=== PATIENT | male | born 1950 | race Caucasian/White ===

== ENCOUNTER 2018-03-18 14:50 | Inpatient (IN) | payer OTHER, MEDICAID ==
[~2018-03-18] VITALS: Ht 182.9 cm; Wt 59.0 kg
[2018-03-18 14:50] VITALS: BP_SYST 140
--- NOTE | 2018-03-18 14:50 | NUR ---
BROUGHT IN BY [facility], PLACED IN BED #1, TRIAGED. REPORT GIVEN TO BROOKS
[2018-03-18] MEDS ORDERED: NACL 0.9% 1,000 ML IV ONE ×2 (15:00→16:30)
--- NOTE | 2018-03-18 15:00 | NUR ---
Patient arrived via [facility]. C/C of AL, patient arrived from [facility]. Patient normal mental status is non verbal, able to track with eyes. Per staff at facility, patient has not been tracking movement today, and patient appears more lethargic. Patient has extensive history. Patient withdrawls to pain, patient is contracted, and non verbal. Patient moaning, and using accessory muscles and abdominal muscles with inspiration.
--- NOTE | 2018-03-18 15:01 | NUR ---
WENDY Logan at bedside examining patient.
[2018-03-18 15:19] LABS: BASOPHILS % (AUTO) 0.3 % (0.0-2.0); HEMATOCRIT 48.8 % (36-54); HEMOGLOBIN 15.6 g/dL (14.0-18.0); LYMPHOCYTES # (AUTO) 0.3 K/uL (1.0-5.5); LYMPHOCYTES % (AUTO) 3.4 % (20.5-51.5); MEAN CORPUSCULAR HEMOGLOBIN 29 pg (27-31); MEAN CORPUSCULAR HGB CONC 32 % (32-36); MEAN CORPUSCULAR VOLUME 92 fL (79.0-98.0); MONOCYTES # (AUTO) 0.4 K/uL (0.0-1.0); MONOCYTES % (AUTO) 3.9 % (1.7-9.3); NEUTROPHILS # (AUTO) 9.5 K/uL (1.8-7.7); NEUTROPHILS % (AUTO) 92.4 % (40.0-70.0); PLATELET COUNT (AUTO) 362 K/uL (130-430); RED BLOOD CELL COUNT(AUTO) 5.32 MIL/uL (4.2-6.2); RED CELL DISTRIBUTION WIDTH 13.5 % (9.0-15.0); WHITE BLOOD COUNT (AUTO) 10.2 K/uL (4.8-10.8)
[2018-03-18 15:30] LABS: PROTHROMBIN TIME 9.9 SECS (9.5-12.5)
[2018-03-18 15:45] LABS: CALCIUM 9.8 mg/dL (8.4-11.0); CREATININE 1.08 mg/dL (0.55-1.30); POTASSIUM 3.9 mmol/L (3.5-5.1)
[2018-03-18 15:53] LABS: TOTAL BILIRUBIN 0.6 mg/dL (0.0-1.0)
[2018-03-18] MEDS ORDERED: IPRATROPIUM/ALBUTEROL SULFATE 3 ML AMPUL.NEB (DUONEB) INH ONE (16:00)
[2018-03-18] MEDS ORDERED: MORPHINE 4 MG/ML INJ. SYRINGE IVP ONE (16:00)
--- NOTE | 2018-03-18 16:00 | NUR ---
Patient taken to CT scan, patient in stable condition. Assisted to CT by RN and Tech.
[2018-03-18 16:01] LABS: BILIRUBIN,URINE NEGATIVE (NEGATIVE); CLARITY/URINE HAZY (CLEAR); COLOR,URINE YELLOW (YELLOW); GLUCOSE,URINE NEGATIVE (NEGATIVE); KETONES,URINE TRACE (NEGATIVE); LEUKOCYTE ESTERASE ,URINE 2+ (NEGATIVE); NITRITE, URINE NEGATIVE (NEGATIVE); PH,URINE 8.5 (5.0-8.0); PROTEIN URINE 2+ (NEGATIVE)
[2018-03-18 16:05] LABS: BLOOD, URINE TRACE (NEGATIVE)
[2018-03-18 16:08] LABS: BACTERIA,URINE MANY /HPF (None Seen); RBC,URINE 0-3 /HPF (0-3); WBC,URINE 50-80 /HPF (0-3)
[2018-03-18 16:09] LABS: MUCUS,URINE None Seen /LPF (None Seen)
--- NOTE | 2018-03-18 16:12 | NUR ---
Patient returned from CT scan, tolerated procedure well.
[2018-03-18] MEDS ORDERED: LEVOFLOXACIN 500 MG/D5W 100 ML IV ONE (16:30)
[2018-03-18] MEDS ORDERED: ONDANSETRON HCL 4 MG/2 ML VIAL IVP PRN (17:45)
[2018-03-18] MEDS ORDERED: ACETAMINOPHEN 325 MG TABLET PO PRN (17:45)
[2018-03-18] MEDS ORDERED: MOM PO (18:14)
[2018-03-18] MEDS ORDERED: SENN8.6T19 PO (18:14)
[2018-03-18] MEDS ORDERED: PRAM1TAB4 PO (18:14)
[2018-03-18] MEDS ORDERED: OXYB5TAB11 PO (18:14)
[2018-03-18] MEDS ORDERED: MULT-1089 PO (18:14)
[2018-03-18] MEDS ORDERED: MONT10TA25 PO (18:14)
[2018-03-18] MEDS ORDERED: ALEN70TA3 PO (18:14)
[2018-03-18] MEDS ORDERED: LACO200T2 PO (18:14)
[2018-03-18] MEDS ORDERED: TOPI200T PO (18:14)
[2018-03-18] MEDS ORDERED: DOCU-144 PO (18:14)
[2018-03-18] MEDS ORDERED: POTA10TA15 PO (18:14)
[2018-03-18] MEDS ORDERED: HYDR-4272 PO (18:14)
[2018-03-18] MEDS ORDERED: ASCO500T20 PO (18:14)
[2018-03-18] MEDS ORDERED: OSCD500 PO (18:14)
[2018-03-18] MEDS ORDERED: LACO100T2 PO (18:14)
[2018-03-18] MEDS ORDERED: ACET325T53 PO (18:14)
[2018-03-18] MEDS ORDERED: LEVO100T PO (18:14)
--- NOTE | 2018-03-18 18:14 | NUR ---
Medication reconciliation completed.
--- NOTE | 2018-03-18 18:20 | NUR ---
ADMISSION NOTE Received patient from ER via mike, received report from LC FORD. Patient admitted with diagnosis of PYELONEPHRITIS. Patient oriented to hospital routine, call light, toileting and safety.
[2018-03-18 18:30] VITALS: BP_SYST 128
--- NOTE | 2018-03-18 18:34 | NUR ---
Patient will be admitted to care of Dr. Alan Hunt. Admitted to Tele unit. Will go to room 132C. Belongings list completed. Summary report printed. Report will be given at bedside.
--- NOTE | 2018-03-18 18:46 | NUR ---
Called the facility [facility] regarding status of vaccine , according to staff patient refused flu vaccine.
[2018-03-18 19:00] VITALS: BP_SYST 98
[2018-03-18 21:18] VITALS: BP_SYST 98
[2018-03-18] MEDS: NACL 0.9% 1,000 ML IV SCH (22:13)
[2018-03-18 23:16] VITALS: BP_SYST 98
[2018-03-19] VITALS (22 sets, daily range): BP systolic 95–136
[2018-03-19] MEDS ORDERED: FUROSEMIDE 40 MG/4 ML VIAL ONE (02:00)
[2018-03-19] MEDS ORDERED: FUROSEMIDE 40 MG/4 ML VIAL IVP SCH (02:00)
--- NOTE | 2018-03-19 02:15 | NUR ---
RECEIVED PT FROM [facility] VIA BED, AWAKE AND GRIMACES AT TIMES.HE IS NON-VERBAL.HAS IV IN PLACE OVER LEFT ARM. HAS MACKAY CATH IN PLACE TO OSD WITH CLEAR ESTHER URINE NOTED.MADE COMFORTABLE IN BED AND BIPAP PLACED BY RT.
--- NOTE | 2018-03-19 02:30 | NUR ---
PATIENT TRANSFERRED TO ICU
--- NOTE | 2018-03-19 03:20 | NUR ---
CONSULT CALLEd at 3:22am SPOKE WITH JOSH AT THE OFFICE.DR CLARK IS AWARE OF THE CONSULT
--- NOTE | 2018-03-19 04:00 | NUR ---
CONTACTED DR CLARK AND NOTIFIED OF CONSULT.AWARE OF THE ABG AND LAB RESIUTS AND GAVE ORDERS.
--- NOTE | 2018-03-19 06:00 | NUR ---
pt.received via er-dept;03/18/18.pt.presetn w/respiratory challenge;pt.receiving o2 therapy:15l/min via non-rebreather mask. pt.presents o2 sat%=90-92%.pt.presents wounds;sacrum;lower extremity bilateral;poor circulation;no denuded skin.photos taken.pt.is bedrest;extremities;upper/lower weakness/contractures.pt.pres5n bernard catheter;chronic.pt.presents iv lock;lt.forearm; #2g.i have initiated the iv fluids;ns.pt.had received the administration levaquin.in the er-dept.pt.presents breathing challenge, o2 sat did not improve pt.presented labored breathing pattern/character;abg;s were attended to.values abnormal. was paged.i conveyed to th pt's status.pt.was ordered transfer to icu;bed;5. ordered. 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 i have conveyed the pt.report/data to jesse;geeta/chg icu.
--- NOTE | 2018-03-19 07:00 | NUR ---
REMAINS ON BIPAP.FIO2 T0 50% AND MANDO WELL.NOTED SMALL OF LEAKAGE FROM LINDA MACKAY CATH, CARE DONE.
[2018-03-19] MEDS: PANTOPRAZOLE SODIUM 40 MG TAB PO SCH (07:30)
--- NOTE | 2018-03-19 07:30 | NUR ---
Opening Note Received report from PM LOGAN Bateman. Pt. is sleeping comfortably, bipap on. No s/s of distress. IV LFA patent, no signs of redness. Burnett cath in place draining yellow urine to gravity. Bed locked in lowest position, bed alarm on, call light within reach.
[2018-03-19 07:31] LABS: BASOPHILS % (AUTO) 0.1 % (0.0-2.0); EOSINOPHILS % (AUTO) 0.1 % (0.0-4.0); HEMATOCRIT 38.2 % (36-54); HEMOGLOBIN 12.1 g/dL (14.0-18.0); LYMPHOCYTES # (AUTO) 0.2 K/uL (1.0-5.5); LYMPHOCYTES % (AUTO) 1.5 % (20.5-51.5); MEAN CORPUSCULAR HEMOGLOBIN 29 pg (27-31); MEAN CORPUSCULAR HGB CONC 32 % (32-36); MEAN CORPUSCULAR VOLUME 92 fL (79.0-98.0); MONOCYTES # (AUTO) 0.3 K/uL (0.0-1.0); MONOCYTES % (AUTO) 2.7 % (1.7-9.3); NEUTROPHILS % (AUTO) 95.6 % (40.0-70.0); PLATELET COUNT (AUTO) 264 K/uL (130-430); RED BLOOD CELL COUNT(AUTO) 4.17 MIL/uL (4.2-6.2); RED CELL DISTRIBUTION WIDTH 13.6 % (9.0-15.0); WHITE BLOOD COUNT (AUTO) 11.5 K/uL (4.8-10.8)
--- NOTE | 2018-03-19 07:35 | NUR ---
Dr. Bey at bedside examining pt. New orders made and carried out.
[2018-03-19] MEDS: NACL 0.9% 1,000 ML IV SCH ×3 (07:36→23:20)
[2018-03-19 07:40] LABS: CALCIUM 9.2 mg/dL (8.4-11.0); CREATININE 1.07 mg/dL (0.55-1.30); POTASSIUM 3.8 mmol/L (3.5-5.1); TOTAL BILIRUBIN 0.5 mg/dL (0.0-1.0)
[2018-03-19] MEDS: ALBUTEROL SULFATE 0.083% 2.5 MG/3 ML VIAL.NEB INH PRN (08:01)
--- NOTE | 2018-03-19 08:17 | NUR ---
PAGE OUT FOR DR WRIGHT. S/W CLIFFORD. AWAITING RETURN CALL.
[2018-03-19] MEDS ORDERED: ALENDRONATE SODIUM 70 MG TABLET (FOSAMAX) PO SCH (08:45)
[2018-03-19] MEDS: methylPREDNISolone SOD SUCC 40 MG/ML VIAL IVP SCH ×2 (08:49→20:21)
[2018-03-19] MEDS: LEVOTHYROXINE SODIUM 0.1 MG TABLET PO SCH (09:00)
[2018-03-19] MEDS: LACOSAMIDE 100 MG TABLET PO SCH ×2 (09:00→20:27)
[2018-03-19] MEDS: TOPIRAMATE 100 MG TABLET(Topamax) PO SCH ×2 (09:00→20:27)
[2018-03-19] MEDS: PRAMIPEXOLE DI-HCL 1 MG TABLET PO SCH ×2 (09:00→20:27)
[2018-03-19] MEDS: POTASSIUM CHLORIDE 10 MEQ TAB.PRT.SR PO SCH (09:00)
[2018-03-19] MEDS: ASCORBIC ACID 500 MG TABLET PO SCH ×2 (09:00→20:27)
[2018-03-19] MEDS: CALCIUM CARBONATE/VITAMIN D3 1 TAB TABLET PO SCH ×2 (09:00→20:27)
[2018-03-19] MEDS: OXYBUTYNIN CHLORIDE 5 MG TABLET PO SCH ×2 (09:00→20:26)
[2018-03-19] MEDS: DOCUSATE SODIUM 100 MG CAPSULE PO SCH ×2 (09:00→20:26)
[2018-03-19] MEDS: ENOXAPARIN SODIUM 40 MG/0.4 ML SYRINGE SUBCUT SCH (09:30)
--- NOTE | 2018-03-19 09:30 | NUR ---
Feeding Pt. unable to follow commands to eat, lethargic, difficult to arouse. Unable to eat breakfast. MD aware of situation. New orders made and carried out.
--- NOTE | 2018-03-19 10:05 | NUR ---
Pt. placed on 6 L oximizer by Umm SPAULDING per MD order. Pt. tolerating well. O2 sat 100%.
--- NOTE | 2018-03-19 10:34 | NUR ---
PLACED ON PT ON 6L OXYMIZER SAT 100%. RN AWARE. Addendum: 03/19/18 at 1037 by Brenna Harley RT Amended: Links added.
--- NOTE | 2018-03-19 10:40 | NUR ---
Attempted NG tube insertion x 3 per MD order. Unsuccessful attempts d/t pt's contractures, verified with xrays. Will attempt at a later time.
--- NOTE | 2018-03-19 11:16 | NUR ---
Nutrition Update Damon Scale 12 noted. Pt admitted for pyelonephritis. Diet: regular BMI: 17.8 kg/m2 RD to follow per nutrition care standards.
--- NOTE | 2018-03-19 14:56 | NUR ---
Dietitian Recommendations * Recommend NPO order and swallow eval LP, RD Please refer to Nutrition Assessment for details.
--- NOTE | 2018-03-19 16:00 | NUR ---
Wound care done. CHG bath given and linens changed. Pt. tolerated well.
[2018-03-19] MEDS: metroNIDAZOLE 500 mg/NS 100 ML IV SCH ×2 (16:11→21:39)
[2018-03-19] MEDS: MONTELUKAST 10 MG TABLET PO SCH (17:57)
[2018-03-19] MEDS: LEVOFLOXACIN 500 MG/D5W 100 ML IV SCH (18:05)
--- NOTE | 2018-03-19 18:30 | NUR ---
Dr. Hunt informed about multiple unsuccessful attempts with insertion of NG tube d/t pt's limited anatomical position. Dr. Hunt states to have a speech therapist evjez pt.
--- NOTE | 2018-03-19 18:32 | NUR ---
PAGE OUT FOR DR WHEATLEY FOR NEW CONSULT. S/W TORIE.
--- NOTE | 2018-03-19 19:07 | NUR ---
Closing Pt nonverbal, no signs of pain noted. Pt still unable to eat. Updated Dr. Hunt about pt's status. New orders made and carried out. IV site intact, patent, no infiltration noted with IVF. Endorsed plan of care to Ankit FORD.
--- NOTE | 2018-03-19 19:30 | NUR ---
PM ASSESSMENT Received pt in bed w/ eyes closed. No signs of acute distress or discomfort noted. VSS w/ SR seen on the monitor. Pt is on an Oxymizer on 6L, tolerating well w/ O2 sats @ 100% w/ even and unlabored breathing. Pt has LFA 20 g, c/d/i w/ no infiltration noted infusing NS @ 100 cc/hr. Burnett cath noted draining yellow urine to gravity. Bed is locked and in lowest position, call light w/in reach, will continue to monitor.
--- NOTE | 2018-03-19 20:22 | NUR ---
CALLED SOCORRO THE SPEECH THERAPIST FOR PATIENT SWALLOW EVAL @ 8:05pm
--- NOTE | 2018-03-19 20:45 | NUR ---
Transferred pt for CT scan of head w/o contrast. Pt tolerated well.
--- NOTE | 2018-03-19 21:10 | NUR ---
Transferred pt back to ICU-5, pt tolerated ct scan well. No signs of acute distress or discomfort noted. Will continue to monitor.
[2018-03-20] VITALS (15 sets, daily range): BP systolic 99–135
--- NOTE | 2018-03-20 04:30 | NUR ---
RN ROUNDS Pt in bed w/ eyes closed, no signs of acute distress or discomfort noted. VSS w/ SR seen on the monitor. Pt on Oximizer 6L tolerating well w/ even and unlabored breathing and O2 sats @ 100%. Pt has a LFA 20g infusing ns @ 100 cc/hr. Burnett cath draining urine to gravity. Bed is locked and in lowest position, call light w/in reach, will continue to monitor.
[2018-03-20] MEDS: metroNIDAZOLE 500 mg/NS 100 ML IV SCH ×3 (05:40→21:26)
[2018-03-20] MEDS: LEVOTHYROXINE SODIUM 0.1 MG TABLET PO SCH (06:45)
--- NOTE | 2018-03-20 07:13 | NUR ---
ENDORSEMENT Report given to Fátima FORD using sbar format. Pt in bed w/ eyes closed, no signs of acute distress or discomfort noted.
[2018-03-20] MEDS: PANTOPRAZOLE SODIUM 40 MG TAB PO SCH (07:30)
--- NOTE | 2018-03-20 07:46 | NUR ---
Opening Note Received report from Ankit FORD. Pt. awake, nonverbal, unable to follow commands. Respirations are even and unlabored on oximizer 6L, O2 sat 100%. No signs of pain or distress noted. Burnett cath in place. IV site patent, no signs of infiltration with IVF. Seizure precautions in place with padded side rails. Bed locked in lowest position, bed alarm on, call light within reach.
[2018-03-20 08:00] LABS: EOSINOPHILS % (AUTO) 0.1 % (0.0-4.0); HEMATOCRIT 36.9 % (36-54); HEMOGLOBIN 12.1 g/dL (14.0-18.0); LYMPHOCYTES # (AUTO) 0.2 K/uL (1.0-5.5); LYMPHOCYTES % (AUTO) 2.7 % (20.5-51.5); MEAN CORPUSCULAR HEMOGLOBIN 30 pg (27-31); MEAN CORPUSCULAR HGB CONC 33 % (32-36); MEAN CORPUSCULAR VOLUME 92 fL (79.0-98.0); MONOCYTES # (AUTO) 0.1 K/uL (0.0-1.0); MONOCYTES % (AUTO) 1.3 % (1.7-9.3); NEUTROPHILS # (AUTO) 6.7 K/uL (1.8-7.7); NEUTROPHILS % (AUTO) 95.9 % (40.0-70.0); PLATELET COUNT (AUTO) 227 K/uL (130-430); RED BLOOD CELL COUNT(AUTO) 4.01 MIL/uL (4.2-6.2); RED CELL DISTRIBUTION WIDTH 13.8 % (9.0-15.0)
[2018-03-20] MEDS: methylPREDNISolone SOD SUCC 40 MG/ML VIAL IVP SCH ×2 (08:11→21:25)
[2018-03-20] MEDS: ENOXAPARIN SODIUM 40 MG/0.4 ML SYRINGE SUBCUT SCH (08:12)
[2018-03-20] MEDS: DOCUSATE SODIUM 100 MG CAPSULE PO SCH ×2 (08:13→21:00)
[2018-03-20] MEDS: OXYBUTYNIN CHLORIDE 5 MG TABLET PO SCH ×2 (08:13→21:00)
[2018-03-20] MEDS: TOPIRAMATE 100 MG TABLET(Topamax) PO SCH ×2 (08:14→21:00)
[2018-03-20] MEDS: PRAMIPEXOLE DI-HCL 1 MG TABLET PO SCH ×2 (08:14→21:00)
[2018-03-20] MEDS: POTASSIUM CHLORIDE 10 MEQ TAB.PRT.SR PO SCH (08:14)
[2018-03-20] MEDS: CALCIUM CARBONATE/VITAMIN D3 1 TAB TABLET PO SCH ×2 (08:14→21:00)
[2018-03-20] MEDS: LACOSAMIDE 100 MG TABLET PO SCH ×2 (08:14→21:00)
[2018-03-20] MEDS: ASCORBIC ACID 500 MG TABLET PO SCH ×2 (08:15→21:00)
[2018-03-20 09:04] LABS: ALBUMIN 2.1 g/dL (3.4-4.8); CALCIUM 8.7 mg/dL (8.4-11.0); CREATININE 1.01 mg/dL (0.55-1.30); POTASSIUM 3.2 mmol/L (3.5-5.1); TOTAL BILIRUBIN 0.3 mg/dL (0.0-1.0)
[2018-03-20] MEDS ORDERED: POTASSIUM CHLORIDE 20 MEQ TAB.PRT.SR GT ONE (09:15)
--- NOTE | 2018-03-20 09:25 | NUR ---
Telemetry Status Pt changed to telemetry status per Dr. Alan Hunt. Monitoring in ICU until bed available in telemetry.
--- NOTE | 2018-03-20 09:25 | NUR ---
Speech therapist Betzaida called unit and notified that she will be unable to see pt today but will come tomorrow. Dr. Hunt made aware and wants to continue NPO status.
--- NOTE | 2018-03-20 09:30 | NUR ---
Dr. Hunt at bedside examining pt. New orders made and carried out.
--- NOTE | 2018-03-20 09:50 | NUR ---
Oximizer titrated to 4L by Umm SPAULDING per MD order. O2 sat 100%.
[2018-03-20] MEDS: NACL 0.9% 1,000 ML IV SCH ×2 (09:52→21:25)
--- NOTE | 2018-03-20 10:00 | NUR ---
RN Rounds Pt. is awake, nonverbal, unable to follow commands. Pt. on oximizer at 4 L per MD order. No signs or symptoms of distress. Pt. tolerating well.
--- NOTE | 2018-03-20 10:05 | NUR ---
Dr. Chi at bedside examining pt.
[2018-03-20] MEDS ORDERED: KCL 20 mEq in 100 mL (PREMIX) 100 ML IV ONE (12:00)
--- NOTE | 2018-03-20 12:00 | NUR ---
RN Rounds Pt. is awake. Pt. on oximizer at 4 L, even and unlabored respirations. Pt. tolerating well. IV LFA intact and patent. No signs of infiltration with IVF. Burnett cath in place draining urine to gravity. Bed locked in lowest position, bed alarm on, call light within reach.
--- NOTE | 2018-03-20 12:30 | NUR ---
Dr. Razo at bedside examining pt.
--- NOTE | 2018-03-20 15:45 | NUR ---
Transfer of care Endorsed plan of care to Helen FORD via SBAR. Pt will go to tele 118A. All belongings sent with pt.
--- NOTE | 2018-03-20 15:50 | NUR ---
RESUMPTION OF CARE RECEIVED REPORT FROM RN. WILL CONTINUE CARE AND TRANSFER PATIENT TO TELEMETRY
--- NOTE | 2018-03-20 16:35 | NUR ---
PATIENT TRANSFER TO ROOM 118 A, TELEMETRY FLOOR. PATIENT WHEELED IN STABLE CONDITION. WILL CONTINUE TO MONITOR. PATIENT IN CONTACT ISOLATION, SAFETY PRECAUTIONS IN PLACE. BED IN LOWEST POSITION, AND WILL CONTINUE TO MONITOR.
[2018-03-20] MEDS: MONTELUKAST 10 MG TABLET PO SCH (17:24)
[2018-03-20] MEDS: LEVOFLOXACIN 500 MG/D5W 100 ML IV SCH (18:02)
--- NOTE | 2018-03-20 18:26 | NUR ---
CLOSING NOTE: PATIENT IS RESTING COMFORTABLY IN BED. NO S/S OF DISTRESS OR SOB. PATIENT IS AWAKE. NOT ALERT, NONVERBAL. PATIENT CONTRACTED. MACKAY IS DRAINING TO GRAVITY. PATIENT ON 4L OXYGEN. PATIENT NPO STATUS. PATIENT IN CONTACT ISOLATION, SEIZURE PRECAUTIONS IN PLACE. ALL NEEDS MET. SAFETY PRECAUTIONS IN PLACE. BED LOCKED, BED IN LOWEST POSITION, AND WILL CONTINUE TO MONITOR.
--- NOTE | 2018-03-20 18:32 | NUR ---
DR. ABDI PAGED TO REPORT POSITIVE MRSA NARES
--- NOTE | 2018-03-20 20:00 | NUR ---
Initial Notes Received patient resting in bed. Patient is nonverbal, unable to follow commands. Patient appears in no acute distress or pain at this time. Breathing is even and unlabored. Vital signs stable. IV site patent/clean/dry. Burnett draining to gravity. Dressings clean/dry/intact. Patient repositioned for comfort. Fall and seizure precautions in place.
--- NOTE | 2018-03-20 22:00 | NUR ---
Nursing Notes Patient resting in bed with eyes closed, easily aroused, no change to mentation. Patient in no acute distress. Breathing is even and unlabored. IV site patent/clean/dry. Repositioned for comfort. Will continue to monitor.
--- NOTE | 2018-03-21 00:20 | NUR ---
Nursing Notes Patient resting in bed with eyes closed. No acute distress noted. Breathing is even and unlabored. IV site patent/clean/dry. Burnett draining to gravity. Will continue to monitor.
[2018-03-21 02:13] VITALS: BP_SYST 144
--- NOTE | 2018-03-21 02:15 | NUR ---
Nursing Notes Patient resting in bed with eyes closed, easily aroused. No change in mentation. Patient appears in no acute distress or pain at this time. Breathing is even and unlabored. IV site patent/clean/dry. Repositioned patient for comfort. Fall and seizure precautions in place.
--- NOTE | 2018-03-21 04:30 | NUR ---
Nursing Notes Patient resting in bed with eyes closed. No distress noted at this time. Breathing is even and unlabored. IV site patent/clean/dry. Fall precautions in place, will continue to monitor.
[2018-03-21] MEDS: metroNIDAZOLE 500 mg/NS 100 ML IV SCH ×3 (05:17→20:49)
--- NOTE | 2018-03-21 06:33 | NUR ---
Closing Notes Patient resting in bed with eyes closed, easily aroused, no change to mentation. Patient appears in no acute distress or pain at this time. Breathing is even and unlabored. IV site patent/clean/dry, no S/S infection/infiltration noted. Burnett draining rob urine to gravity. Sacral dressing change provided. Needs addressed throughout shift. Fall and seizure precautions in place. No seizure activity noted throughout shift. Will continue to monitor for changes and safety, and endorse all patient care/needs to oncoming nurse.
[2018-03-21] MEDS: LEVOTHYROXINE SODIUM 0.1 MG TABLET PO SCH (07:00)
[2018-03-21 07:10] LABS: BASOPHILS % (AUTO) 0.3 % (0.0-2.0); HEMATOCRIT 36.6 % (36-54); HEMOGLOBIN 11.7 g/dL (14.0-18.0); LYMPHOCYTES # (AUTO) 0.3 K/uL (1.0-5.5); LYMPHOCYTES % (AUTO) 3.2 % (20.5-51.5); MEAN CORPUSCULAR HEMOGLOBIN 30 pg (27-31); MEAN CORPUSCULAR HGB CONC 32 % (32-36); MEAN CORPUSCULAR VOLUME 93 fL (79.0-98.0); MONOCYTES # (AUTO) 0.2 K/uL (0.0-1.0); MONOCYTES % (AUTO) 2.8 % (1.7-9.3); NEUTROPHILS # (AUTO) 7.7 K/uL (1.8-7.7); NEUTROPHILS % (AUTO) 93.7 % (40.0-70.0); PLATELET COUNT (AUTO) 268 K/uL (130-430); RED BLOOD CELL COUNT(AUTO) 3.92 MIL/uL (4.2-6.2); RED CELL DISTRIBUTION WIDTH 13.9 % (9.0-15.0); WHITE BLOOD COUNT (AUTO) 8.2 K/uL (4.8-10.8)
[2018-03-21] MEDS: PANTOPRAZOLE SODIUM 40 MG TAB PO SCH (07:30)
[2018-03-21 08:00] VITALS: BP_SYST 131
--- NOTE | 2018-03-21 08:00 | NUR ---
Opening Note received report from steel pourer helper RN, pt resting in bed, pt nonverbal, does not follow commands, localizes to pain, eyes open, pt awake, respirations even and unlabored on 4L oxymizer, no pain noted using FLACC scale, no acute distress noted, IV site clean, dry, intact, and infusing well, pt educated on use of call light and asked to call for assistance, call light in reach, bed in low and locked position, bed alarm on, fall, aspiration, and isolation precautions in place. Addendum: 03/21/18 at 1923 by Juli Javed RN add: side rails padded, seizure precautions in place.
[2018-03-21 08:16] LABS: ALBUMIN 2.1 g/dL (3.4-4.8); CALCIUM 7.7 mg/dL (8.4-11.0); CREATININE 0.99 mg/dL (0.55-1.30); POTASSIUM 3.7 mmol/L (3.5-5.1); THYROID STIMULATING HORMONE 10.42 uIu/mL (0.34-4.82); TOTAL BILIRUBIN 0.2 mg/dL (0.0-1.0)
--- NOTE | 2018-03-21 08:56 | NUR ---
PAGED DR WRIGHT [phone] [facility]
[2018-03-21] MEDS: PRAMIPEXOLE DI-HCL 1 MG TABLET PO SCH ×2 (09:00→20:49)
[2018-03-21] MEDS: OXYBUTYNIN CHLORIDE 5 MG TABLET PO SCH ×2 (09:00→20:49)
[2018-03-21] MEDS: POTASSIUM CHLORIDE 10 MEQ TAB.PRT.SR PO SCH (09:00)
[2018-03-21] MEDS: CALCIUM CARBONATE/VITAMIN D3 1 TAB TABLET PO SCH ×2 (09:00→20:50)
[2018-03-21] MEDS: ASCORBIC ACID 500 MG TABLET PO SCH ×2 (09:00→20:50)
[2018-03-21] MEDS: DOCUSATE SODIUM 100 MG CAPSULE PO SCH ×2 (09:00→20:49)
[2018-03-21] MEDS: LACOSAMIDE 100 MG TABLET PO SCH ×2 (09:00→20:50)
[2018-03-21] MEDS: TOPIRAMATE 100 MG TABLET(Topamax) PO SCH ×2 (09:00→20:50)
--- NOTE | 2018-03-21 09:29 | NUR ---
Spoke with spoke with Dr. Gonzalez, informed MD of critical lab chloride 125, lab of sodium 156, and that pt is on NS @100ml/hr, orders to D/C NS fluids, orders for D5W @60ml/hr, orders verified with read back.
[2018-03-21] MEDS ORDERED: D5W 1,000 ML IV SCH (09:30)
[2018-03-21] MEDS: methylPREDNISolone SOD SUCC 40 MG/ML VIAL IVP SCH (09:34)
[2018-03-21] MEDS: ENOXAPARIN SODIUM 40 MG/0.4 ML SYRINGE SUBCUT SCH (09:35)
[2018-03-21] MEDS: D5W 1,000 ML IV SCH (09:55)
--- NOTE | 2018-03-21 09:56 | NUR ---
Medication pt educated on use and side effects of medication, pt tolerated medication administration well, no acute distress noted, fall, aspiration, and isolation precautions in place.
--- NOTE | 2018-03-21 10:21 | NUR ---
S.T. SWALLOW EVAL COMPLETED. PT PRESENTS W/ SEV PRE-ORAL, ORAL, AND PHARYNGEAL DYSPHAGIA CHARACTERIZED BY POOR INTEREST FOR P.O., POOR BOLUS UI UX ENGINEER, ABSENT BOLUS MANIPULATION, AND ABSENT SWALLOW. PT ALSO SHOWS LABOR OF BREATHING. PT IS AT HIGH RISK FOR ASPIRATION, MALNUTRITION, AND DEHYDRATION. REC: NPO - ALTERNATIVE METHOD FOR FEEDING. RE-EVAL WHEN P.O. INTEREST INCREASES. SP/LANG EVAL/TX NOT INDICATED AT THIS TIME. NURSE SUMMER NOTIFIED. G8996 CM G8997 CM G8998 CM NOMS LEVEL 2
[2018-03-21 10:57] VITALS: BP_SYST 140
--- NOTE | 2018-03-21 12:05 | NUR ---
RN Rounds pt resting in bed, respirations even and unlabored on 2L nasal cannula, pt assisted to reposition, no acute distress noted, fall, aspiration, and isolation precautions in place.
[2018-03-21] MEDS ORDERED: COMMUNICATION ORDER XX ONE (12:30)
--- NOTE | 2018-03-21 13:05 | NUR ---
RN Rounds pt resting in bed, tolerating O2 therapy well on 2L nasal cannula, O2Sat 95%, no pain noted using FLACC scale, no acute distress noted, pt repositioned, fall, aspiration, and isolation precautions in place.
--- NOTE | 2018-03-21 14:26 | NUR ---
WOUND EVALUATION: Late note for 142 secondary to patient care. Wound Consult received from Dr. Raeann Hunt. Thank you, Dr. Hunt, for the consult. Patient received in a [place]ia Bed with a foam mattress, awake, alert, and oriented. Patient is unable to turn independently. Damon Score is a 12. Past Medical History: Encephalopathy, history of recurrent UTIs, Seizures, Chronic Atrial Fibrillation, history of Deep Venous Thrombosis in the left leg, chronic indwelling Burnett, Hypertension, Parkinson's disease, recurrent Hyponatremia. Recent Labs: WBC 8.2, RBC 3.92, hemoglobin 11.7, hematocrit 36.6, sodium 156, chloride 125, BUN 36, creatinine 0.99, GFR 105, calcium 7.7, albumin 2.1. Microbiology: Blood culture results 2 in progress. Urine culture results positive for Proteus mirabilis (ESBL). MRSA screen results positive. Intrinsic factors that delay wound healing: Encephalopathy, hypoalbuminemia. Extrinsic factors that delay wound healing: Immobility. Bilateral lower extremities have hemosiderin staining. Wound Assessment: 1. Sacral-Coccygeal area: Stage IV pressure ulcer, present on admission. Wound bed has 70% black slough, 30% yellow slough. No odor, no drainage. Periwound has dark discolored tissue on right lateral and inferior aspects of wound. Right upper sacral area has scar tissue, on admission. Wound measures 4.0 cm x 3.0 cm x 1.0 cm. Recommend: Cleanse wound with normal saline. Place moisture barrier cream onto nathaly-wound. Apply Venelex ointment onto wound bed. Place one 2.2 inch TenderWet dressing into wound cavity. Cover with Sacral foam dressing. Perform wound care daily, and as needed for dressing soiling or dislodgement. 2. Sacral-Coccygeal area, right lateral aspect: Multiple areas of non-intact skin, present on admission. Non-intact sites have has dark red tissue inferiorly and dark discolored tissue superiorly. No odor, no drainage. Periwounds intact. Site measures 6.0 cm x 3.0 cm. 3. Sacral-Coccygeal area, left lateral aspect: Multiple areas of non-intact skin, present on admission. Non-intact sites have has dark red tissue inferiorly and dark discolored tissue superiorly. No odor, no drainage. Periwounds intact. Site measures 2.0 cm x 2.5 cm. Recommend: Cleanse wounds with normal saline. Place moisture barrier cream onto wounds and nathaly-wounds. Apply Venelex ointment onto any portion of wound beds not covered by barrier cream. Cover with Sacral foam dressing. Perform wound care daily, and as needed for dressing soiling or dislodgement. 4. Left Achilles area: Area of purple discoloration, present on admission. No odor no drainage, skin intact. Possible former sDTI site. Site measures 0.4 cm x 1.2 cm. Recommend: Cover site with foam dressing. Elevate, offload and float involved area one pillow lengthwise under extremity. Do not allow involved area to come in contact with pillow, bed, or other areas. Also recommend: Reposition patient [id number] only every 2 hours with pillow support, and off-load pressure areas with pillows for pressure re-distribution. Offload, elevate and float bilateral heels with one pillow lengthwise (Do not allow Left Achilles area to come in contact with pillow, bed, or other areas). Perform skin care and monitor skin integrity Q shift. Use moisture barrier cream on buttocks and other moisture susceptible areas QID and as needed for soiling. Place patient on a low air-loss mattress.
[2018-03-21] MEDS ORDERED: BALSAM PERU/CASTOR OIL 60 GM OINT...G. TP ONE (14:30)
--- NOTE | 2018-03-21 14:52 | NUR ---
Medication/incontinent of bowel pt incontinent of bowel x1, pt cleaned and repositioned, heels floating, tolerated well, no acute distress noted, pt educated on medication use and side effects, pt tolerating medication administration well, flagyl hung IVPB with NS, no acute distress noted, fall, aspiration, and isolation precautions in place.
--- NOTE | 2018-03-21 15:21 | NUR ---
CONSULT GO POSSIBLE PEG RAFIA GUAMAN [phone] S/W COLE EXCHANGE
[2018-03-21 15:45] VITALS: BP_SYST 136
[2018-03-21] MEDS: ERTAPENEM SODIUM 1 GM in NS 50 ML IV SCH (16:33)
--- NOTE | 2018-03-21 16:47 | NUR ---
Wound Care/Incontinent of bowel pt incontinent of bowel, pt cleaned, tolerated well, wound care completed per orders, cleansed with NS, sureprep to periwound, venelex to wound bed, tenderwet 1.6 inch to wound bed, covered with foam dressing, pt tolerated well, no pain noted during or after wound care using FLACC scale, pt repositioned, no acute distress noted, fall, aspiration, and isolation precautions in place.
[2018-03-21] MEDS: LEVOFLOXACIN 500 MG/D5W 100 ML IV SCH (17:16)
[2018-03-21] MEDS: MONTELUKAST 10 MG TABLET PO SCH (17:16)
--- NOTE | 2018-03-21 17:18 | NUR ---
Medication pt educated on use and side effects of medication, pt tolerating medication administration well, no redness or swelling noted at IV site, no acute distress noted, fall, aspiration, and isolation precautions in place.
--- NOTE | 2018-03-21 19:15 | NUR ---
Closing Note pt resting in bed, pt nonverbal, localizes to stimuli, does not follow commands, eyes open, pt awake, pt tolerating O2 therapy well on 2L nasal cannula, respirations even and unlabored, no pain noted using FLACC scale, no acute distress noted, IV site clean, dry, intact, and infusing well, wound dressings clean, dry, and intact, bernard catheter draining to gravity, heels floating, side rails padded, pt educated on use of call light and asked to call for assistance, call light in reach, bed alarm on, bed in low and locked position, fall, aspiration, isolation, and seizure precautions in place, care endorsed to Lacie FORD.
--- NOTE | 2018-03-21 19:30 | NUR ---
INITIAL NOTES HANDOFF REPORT RECEIVED FROM OFFGOING NURSE AT THE BEDSIDE. PATIENT IS RESTING COMFORTABLY IN BED WITH EYES CLOSED. NO SOB, NO ACUTE DISTRESS, NO SIGNS OF DISTRESS. IVF INFUSING AT THE ORDERED RATE, SEE EMAR. BED IS LOCKED, IN THE LOWEST POSITION, 2X SIDE RAILS UP, BED ALARM IS ON. CALL LIGHT IS WITHIN REACH. ENCOURAGED PATIENT TO CALL FOR ASSISTANCE. WILL CONTINUE WITH PLAN OF CARE.
[2018-03-21 20:00] VITALS: BP_SYST 138
--- NOTE | 2018-03-21 22:08 | NUR ---
PATIENT RESTING COMFORTABLY IN BED, AWAKE. NO SOB, NO ACUTE DISTRESS, NO SIGNS OF DISCOMFORT. BED IS LOCKED, IN THE LOWEST POSITION, 2X SIDE RAILS UP, BED ALARM IS ON. IVF INFUSING AT THE ORDERED RATE, SEE EMAR FOR DETAILS. CALL LIGHT WITHIN REACH.
--- NOTE | 2018-03-21 23:27 | NUR ---
PATIENT RESTING COMFORTABLY IN BED WITH EYES CLOSED. NO SOB, NO ACUTE DISTRESS, NO SIGNS OF DISCOMFORT. BREATHING EVEN AND UNLABORED WITH VISIBLE CHEST RISE AND FALL NOTED. IVF INFUSING AT THE ORDERED RATE, SEE EMAR FOR DETAILS. BED IS LOCKED, IN THE LOWEST POSITION, 2X SIDE RAILS UP. CALL LIGHT WITHIN REACH.
[2018-03-21 23:37] VITALS: BP_SYST 133
[2018-03-22] VITALS (27 sets, daily range): BP systolic 73–146
--- NOTE | 2018-03-22 00:10 | NUR ---
RN Notes Patient VSS, breathing even and unlabored. Seizure precautions in place. Aspiration and safety precautions in place. Isolation precautions observed. No distress noted. Will continue to monitor. Addendum: 03/23/18 at 0544 by Jacqui Hooper RN Disregard note.
--- NOTE | 2018-03-22 01:57 | NUR ---
PATIENT RESTING COMFORTABLY IN BED WITH EYES CLOSED. NO SOB, NO ACUTE DISTRESS, NO SIGNS OF DISCOMFORT. BED IS LOCKED, IN THE LOWEST POSITION, 2X SIDE RAILS UP, BED ALARM IS ON. IVF INFUSING AT ORDERED RATE, SEE EMAR. CALL LIGHT WITHIN REACH.
[2018-03-22] MEDS: D5W 1,000 ML IV SCH ×2 (02:43→21:00)
--- NOTE | 2018-03-22 02:43 | NUR ---
PATIENT IS RESTING COMFORTABLY IN BED WITH EYES CLOSED. NO SOB, NO ACUTE DISTRESS, NO SIGNS OF DISCOMFORT. BREATHING IS EVEN AND UNLABORED WITH VISIBLE CHEST RISE AND FALL NOTED. IV FLUID BAG CHANGED NEEDED, AND CURRENTLY INFUSING AT ORDERED RATE, SEE EMAR FOR DETAILS.
--- NOTE | 2018-03-22 03:20 | NUR ---
PATIENT SHOWING VTACH ON THE MONITOR, PROMPTLY WENT TO THE PATIENT'S ROOM TO CHECK. PATIENT FOUND PALE, UNRESPONSIVE TO DEEP STIMULI. PUPILS FIXED AND DILATED 5MM. O2 SAT 90% ON 2L NC. BLOOD GLUCOSE 97. [place] BREATHING OBSERVED, PATIENT'S O2 SAT DROPPED TO LOWEST 50%. INCREASED O2 SUPPLY AND CALLED A CODE BLUE.
--- NOTE | 2018-03-22 03:40 | NUR ---
Call placed to Dr. Sheth.: Call placed to Dr. Sheth to made her aware that patient was intubated due to patient respiratory distress and desaturation; ordered to transfer patient to ICU and update Dr Shah about patient condition. Primary nurse made aware.
--- NOTE | 2018-03-22 03:42 | NUR ---
PAGED PAGED [employer] LEGAL SECRETARY PHYSICIAN, DR. SALDIVAR @ [phone].
--- NOTE | 2018-03-22 03:55 | NUR ---
RECEIVED REPORT Received report from LOGAN [place]. Patient resting in the bed with eyes closed. Oral intubation with 7.5 x 20cm. Nurse bagging patient with O2. F/C intact, drain gravity with rob urine. IV intact to LFA. Safety measure maintained. Bed locked in low position, side rails up. Call light within reached. Will continue to monitor.
--- NOTE | 2018-03-22 03:55 | NUR ---
PATIENT TRANSFERRED TO ICU BED 7. REPORT GIVEN TO MATHEUS AT THE BEDSIDE.
--- NOTE | 2018-03-22 04:55 | NUR ---
DR. GLOVER CALLED BACK Received the call back from Dr. Glover, wireless sales consultant for [employer]. Reported the ABG result after 30 minutes of intubation and current vent setting AC=16, ZK=141, Vz93=372%. Dr. Glover with order of vent setting: AC=20, MQ=163, FtK4=797%, PEEP=5, repeat ABG one hour after adjustment. Reported chest x-ray result after intubation, ET tube 6.4cm above kenna, Dr. glover ei order ET down 2cm, orders read back and okay to .
--- NOTE | 2018-03-22 05:05 | NUR ---
RT ADJUSTED VENT SETTING AND et DOWN 2CM PER ORDERED. PATIENT TOLERATED PROCEDURE WELL.
--- NOTE | 2018-03-22 06:44 | NUR ---
DR. BEY CALLED BACK Reported to Dr. Bey for ABG result, PH=7.41, CO2=29.5, KG7=553.2, Bicab=18, Base=-5, O2 sat=99%. Dr. Bey with order or new vent setting: AC=16, FD=720, FiO2=60%, PEEP=5. Asked if any repeat ABG, Dr. Bey stated "no need". Order read back and okay to
--- NOTE | 2018-03-22 06:48 | NUR ---
RT NOTES- VENT SETTING CHANGE PER DR. CLARK'S ORDER. CHANGE VENT SETTING TO AC 16, 500, PEEP 5, 60%. SPUTUM SAMPLE COLLECTED AND WILL SEND TO LAB LATER. LOGAN KESSLER MADE AWARE OF ALL CHANGES. WILL CONTINUE MONITORING.
[2018-03-22] MEDS: metroNIDAZOLE 500 mg/NS 100 ML IV SCH ×3 (06:52→21:26)
[2018-03-22] MEDS: LEVOTHYROXINE SODIUM 0.1 MG TABLET PO SCH (06:53)
[2018-03-22] MEDS: PANTOPRAZOLE SODIUM 40 MG TAB PO SCH (06:53)
[2018-03-22 06:59] LABS: CALCIUM 7.8 mg/dL (8.4-11.0); CREATININE 0.97 mg/dL (0.55-1.30)
[2018-03-22 07:09] LABS: POTASSIUM 2.9 mmol/L (3.5-5.1)
--- NOTE | 2018-03-22 07:25 | NUR ---
REPORT GIVE Report given to morning RN. Patient resting in the bed with eyes closed. No acute distress. ETT intact to vent. HOB elevated. IV intact, no redness, no swelling, no drainage, IVF infusing well. F/C intact, drain gravity. Safety measure maintained. Call light within reached. Bed locked in low position, side rails up. SBAR given to morning nurse and hands off.
[2018-03-22] MEDS ORDERED: POTASSIUM CHLORIDE 40 MEQ in NS 250 ML IV ONE (07:30)
--- NOTE | 2018-03-22 07:30 | NUR ---
AM Note Received pt unresponsive, nonverbal, no signs of pain or distress noted. SBAR report receivd from Pamela RN. Assessment done in ICU shift assessment.
--- NOTE | 2018-03-22 07:41 | NUR ---
K=2.9, CHLORIDE= 121 Received the call back from Sheron Stevens, fitness professional for Dr. Hunt. Reported K=2.9, Milkncrp=842. Dr. Gonzalez with order Miky 40mEq IVPB X 1. Order read back and okay to
--- NOTE | 2018-03-22 08:00 | NUR ---
[facility] bath, wound care given, and photographs taken. Documentation of wound care in ICU shift assessment. Addendum: 03/22/18 at 1752 by Fátima Biggs RN per wound care orders.
--- NOTE | 2018-03-22 08:22 | NUR ---
Consult Cardio Dr. Stephens called (Dr. Springer television mechanic) Spoke to nicci Dialed [phone] Gonzalez
[2018-03-22] MEDS: ENOXAPARIN SODIUM 40 MG/0.4 ML SYRINGE SUBCUT SCH (09:02)
--- NOTE | 2018-03-22 09:24 | NUR ---
2D echo currently at bedside.
--- NOTE | 2018-03-22 09:50 | NUR ---
RT NOTES- O2 TITRATION TITRATED FIO2 TO 40%. KEEPING SPO2 ABOVE 90% PER DR. GARCIA. RN FLORIDALMA MADE AWARE. WILL CONTINUE MONITORING.
--- NOTE | 2018-03-22 09:50 | NUR ---
FiO2 changed to 40% by Florence SPAULDING per MD order. Pt tolerating well, O2 sat 96%.
--- NOTE | 2018-03-22 10:30 | NUR ---
OG tube placed and confirmed with XR.
--- NOTE | 2018-03-22 12:25 | NUR ---
Consult ID. Dr. Valdovinos called (Dr. Padilla pulmonology technician) Spoke to prasanna Dialed [phone] Gonzalez
--- NOTE | 2018-03-22 12:27 | NUR ---
Heart Rhythm Pt noted with period of SVT, VT, with a pulse, HR 130-140s, and seizure lasting about 1 minute, then back to SR with pace of HR 60s. Dr. Ibanez and Dr. Gonzalez made aware of situation and also about New orders made and carried out.
--- NOTE | 2018-03-22 13:18 | NUR ---
Nutrition F/U Admitting Diagnosis Pyelonephritis Reviewed Pertinent Medical/Surgical Hx Medical Record Patient Primary RN Medical History Comment: PMH: Parkinson's Dz, recurrent UTI, seizures, atr fibr, s/p pacemaker, previous DVTs per MD notes Pt also found w/ UTI, possible pneumonia, ALOC per MD notes Subjective Information Pt seen for follow up. +lethargic, unresponsive. NPO status for 2 days now. Per RN, pt w/ NG tube and may need rec for tube feeding. Per MD notes, pt had ventricular fibrillation w/ agonal breathing. He was intubated and placed on mechanical vent overnight. Overall poor prognosis as the pt might need a trach and GT as his cough and swallow dysfunction might not improve. Pt is not meeting optimal nutrition. Current Diet Order/Nutrition Support NPO x 2 days Patient/Significant Other Unable To Verbalize Education Provided Not Indicated Pertinent Medications D5% IV, lovenox, zofran Pertinent Labs Na 151 H, K 2.9 L, BG 133 H, BUN 24 H, ALB 2.1 L , WBC 8.2 WNL (improved), RBC 3.92 L, Hgb 11.7 L, Cl 121H Height (Feet) 6 feet Height (Inches) 0.00 inches Weight (Pounds) 130 pounds Weight (Calculated Kilograms) 58.284082 kilograms Patient Weight 58.967 kg Body Mass Index 17.63 kg/m2 %IBW 73 [place]/Adjusted Body Weight IBW: 178 lb, 81 kg Weight Status Underweight Gastrointestinal Symptoms None Difficulty With: Chewing Swallowing Food Allergies unable to verify Usual Diet At Home Pureed honey thick liquids per EMR Skin Integrity Comment: Damon scale: 10; Per [employer] Fusion Developer note (03/21/18): 1. Sacral-Coccygeal area: Stage IV pressure ulcer, present on admission. Wound bed has 70% black slough, 30% yellow slough. 2. Sacral-Coccygeal area, right lateral aspect: Multiple areas of non-intact skin, present on admission. Non-intact sites have has dark red tissue inferiorly and dark discolored tissue superiorly. 3. Sacral-Coccygeal area, left lateral aspect: Multiple areas of non-intact skin, present on admission. Non-intact sites have has dark red tissue inferiorly and dark discolored tissue superiorly. 4. Left Achilles area: Area of purple discoloration, present on admission. No odor no drainage, skin intact. Per RN notes, non-pitting edema to Bilateral ankle and Bilateral arm. Current % PO N/A on NPO NEW Estimated Energy Expenditure (kcals/day) 1663 kcal/day (PSU MSJ CBW for critical illness/vent support) Estimated Protein Required (g/day) 97-122 gm/day (1.2-1.5 gm/kg IBW for wt gain, wounds) Estimated Fluid Required (l/day) 1.8 L/day (30 ml/kg CBW for geriatric maintenance) Problem/Etiology/Signs/Symptoms Chewing/swallowing difficulty related to cognitive limitations as evidenced by lethargy and inability to take PO diet at lunch. *ongoing Expected Outcomes/Goals - Monitor provision of EN support and intake w/ goal of pt meeting at least 50% of estimated nutritional needs, labs trending WNL, normal GI function, and skin integrity/wt maintenance Dietitian Recommendations * When medically appropriate, recommend Pivot 1.5 at 45ml/hr (goal rate), FWF 250ml Q6H via NGT Provides: 1620 kcal, 101 gm protein and 1820ml free water daily. Meets: 97% of estimated calorie needs and 83% of upper end of estimated protein needs. Follow Up High Risk: F/U in 2-3days
--- NOTE | 2018-03-22 13:37 | NUR ---
Dietitian Recommendations * When medically appropriate, recommend Pivot 1.5 at 45ml/hr (goal rate), FWF 250ml Q6H via NGT Provides: 1620 kcal, 101 gm protein and 1820ml free water daily. Meets: 97% of estimated calorie needs and 83% of upper end of estimated protein needs. Please see Nutrition F/U note for details. SENIOR CARE, RD
[2018-03-22] MEDS: TOPIRAMATE 100 MG TABLET(Topamax) PO SCH ×2 (14:22→21:01)
[2018-03-22] MEDS: ASCORBIC ACID 500 MG TABLET PO SCH ×2 (14:23→21:01)
[2018-03-22] MEDS: PRAMIPEXOLE DI-HCL 1 MG TABLET PO SCH ×2 (14:25→21:03)
[2018-03-22] MEDS: CALCIUM CARBONATE/VITAMIN D3 1 TAB TABLET PO SCH ×2 (14:38→21:02)
[2018-03-22] MEDS: DOCUSATE SODIUM 100 MG CAPSULE PO SCH ×2 (14:43→21:00)
[2018-03-22] MEDS: LACOSAMIDE 100 MG TABLET PO SCH ×2 (14:44→21:01)
[2018-03-22] MEDS: OXYBUTYNIN CHLORIDE 5 MG TABLET PO SCH ×2 (14:44→21:01)
[2018-03-22] MEDS: POTASSIUM CHLORIDE 10 MEQ TAB.PRT.SR PO SCH (14:44)
[2018-03-22] MEDS: BALSAM PERU/CASTOR OIL 60 GM OINT...G. TP SCH (14:45)
[2018-03-22] MEDS: ERTAPENEM SODIUM 1 GM in NS 50 ML IV SCH (15:43)
[2018-03-22] MEDS: LORazepam 2 MG/ML VIAL IVP PRN ×2 (15:45→21:09)
--- NOTE | 2018-03-22 17:13 | NUR ---
Paged Dr. Meeks for RN. Dialed [phone] spoke to matthew
--- NOTE | 2018-03-22 17:42 | NUR ---
2ND Page for Dr. Meeks per RN. Dialed [phone] spoke to matthew
--- NOTE | 2018-03-22 17:43 | NUR ---
Paged Dr. Loya spoke to rosa dialed [phone]
[2018-03-22] MEDS ORDERED: NOREPINEPHRINE 4 MG/4 ML VIAL IV ONE (18:17)
[2018-03-22] MEDS: MONTELUKAST 10 MG TABLET PO SCH (18:26)
--- NOTE | 2018-03-22 18:29 | NUR ---
Witnessed levophed drip start per MD order 2 mcg/min. BP 77/54
--- NOTE | 2018-03-22 19:20 | NUR ---
Opening Note: Received patient lethargic. Paced on monitoring analyst. Pt VSS. Pt intubated, ETT to vent size 7.5, @ 22 lipline. IV sites intact, no redness or infiltration noted. IVF infusing well. Pt on Levophed drip @ 2mcg/min. OGT clamped. Pt on bernard, urine draining to gravity. HOB elevated, call light within reached. Bed locked, in lowest position. Contact precautions observed. No distress noted. Will continue to monitor.
--- NOTE | 2018-03-22 19:30 | NUR ---
Seizure precautions Side rails pads placed. Safety and aspirations precautions in place.
--- NOTE | 2018-03-22 19:43 | NUR ---
Endorsed plan of care to night court magistrate RN via SBAR.
[2018-03-23] VITALS (32 sets, daily range): BP systolic 85–152
--- NOTE | 2018-03-23 00:10 | NUR ---
RN Notes Patient VSS, breathing even and unlabored. Seizure precautions in place. Aspiration and safety precautions in place. Isolation precautions observed. No distress noted. Will continue to monitor.
--- NOTE | 2018-03-23 04:30 | NUR ---
RN Notes Patient VSS, SR/Paced on custom harvester. Tolerating vent settings well, saturating @ 98%. No SOB or distress noted. Will continue to monitor.
[2018-03-23] MEDS: metroNIDAZOLE 500 mg/NS 100 ML IV SCH ×3 (05:04→21:25)
[2018-03-23] MEDS: LEVOTHYROXINE SODIUM 0.1 MG TABLET PO SCH (06:30)
[2018-03-23] MEDS: PANTOPRAZOLE SODIUM 40 MG TAB PO SCH (06:30)
[2018-03-23 06:55] LABS: CREATININE 0.99 mg/dL (0.55-1.30)
--- NOTE | 2018-03-23 07:05 | NUR ---
Dr Gonzalez at bedside examining Pt. Will carry out new orders.
--- NOTE | 2018-03-23 07:17 | NUR ---
Closing Note Pt VSS, denies pain or discomfort. No distress noted. Report endorsed to Ezio FORD at bedside.
[2018-03-23] MEDS ORDERED: POTASSIUM CHLORIDE 40 MEQ in NS 250 ML IV SCH (07:30)
--- NOTE | 2018-03-23 07:45 | NUR ---
AM Assessment Pt in bed. Lethargic and contracted. Pt has Vent in place. Vent settings: AC 16. TV 500. PEEP 5. FIO2 40%. SB-SR paced shown on monitor. NO s/s of distress or discomfort noted. Pt parish bernard in place draining urine to gravity. Pt has OG tube in place, clamped. Pt has IV LFA 20g and R subclavian 22g running Levophed @ 4mcg/min. Skin not intact. Q2H turn intervention and Pt offloaded on pressure surfaces in place. Bed locked in lowest position, safety precautions in place, and call light in reach. Will continue to monitor Pt.
[2018-03-23] MEDS ORDERED: ALBUMIN HUMAN 5% 250 ML IV ONE (08:00)
--- NOTE | 2018-03-23 08:00 | NUR ---
Dr. Roberts at bedside examining Pt. Will carry out new orders.
[2018-03-23] MEDS: DOCUSATE SODIUM 100 MG CAPSULE PO SCH ×2 (08:31→20:55)
[2018-03-23] MEDS: POTASSIUM CHLORIDE 20 MEQ/PKT PACKET PO SCH ×2 (08:31→20:56)
[2018-03-23] MEDS: LACOSAMIDE 100 MG TABLET PO SCH ×2 (08:31→20:57)
[2018-03-23] MEDS: ASCORBIC ACID 500 MG TABLET PO SCH ×2 (08:31→20:57)
[2018-03-23] MEDS: OXYBUTYNIN CHLORIDE 5 MG TABLET PO SCH ×2 (08:31→20:57)
[2018-03-23] MEDS: POTASSIUM CHLORIDE 10 MEQ TAB.PRT.SR PO SCH (08:31)
[2018-03-23] MEDS: ENOXAPARIN SODIUM 40 MG/0.4 ML SYRINGE SUBCUT SCH (08:33)
[2018-03-23] MEDS ORDERED: ROCURONIUM BROMIDE 10 MG/ML (ZEMURON) IV ONE (08:49)
--- NOTE | 2018-03-23 10:02 | NUR ---
CALLED PER PT INSURANCE, PT HAS [employer]. CALLED [facility] SPOKE WITH ENRIQUE WRIGHT WAS PAGED FOR ORDERS.
[2018-03-23] MEDS: TOPIRAMATE 100 MG TABLET(Topamax) PO SCH ×2 (10:40→20:56)
[2018-03-23] MEDS: CALCIUM CARBONATE/VITAMIN D3 1 TAB TABLET PO SCH ×2 (10:41→20:57)
[2018-03-23] MEDS: BALSAM PERU/CASTOR OIL 60 GM OINT...G. TP SCH (10:42)
[2018-03-23] MEDS: PRAMIPEXOLE DI-HCL 1 MG TABLET PO SCH ×2 (10:42→20:58)
--- NOTE | 2018-03-23 12:00 | NUR ---
WOUND EVALUATION: Late note for 1200 secondary to patient care. Wound Consult received from Dr. Gonzalez. Thank you, Dr. Gonzalez, for the consult. Patient received in a Lakes[place]ia Bed with a foam mattress, awake, nonverbal, nonresponsive to verbal commands. Patient is unable to turn in bed independently. Damon Score is a 9. Past Medical History: Encephalopathy, recurrent UTIs, Seizures, Chronic Atrial Fibrillation, chronic Burnett catheter, history of Deep Venous Thrombosis in the left leg in 2016, Hypertension, Parkinson's disease, recurrent Hyponatremia. Recent Labs: WBC 8.2, RBC 3.92, hemoglobin 11.7, hematocrit 36.6, sodium 148, potassium 3.0, chloride 116, BUN 16, creatinine 0.99, GFR 80, glucose 108, calcium 8.0, albumin 2.1, TSH 10.42. Microbiology: Blood culture results 2 in progress. Urine culture results positive for Proteus mirabilis (ESBL). MRSA screen results positive. Sputum culture in progress. Intrinsic factors that delay wound healing: Cephalopathy, chronic atrial fibrillation, hypoalbuminemia. Extrinsic factors that delay wound healing: Immobility. Wound Assessment: 1. Sacral-Coccygeal area: Stage IV pressure ulcer, present on admission. Wound bed has 30% black slough, 70% yellow slough. No odor, no drainage. Periwound has dark discolored tissue on right lateral and inferior aspects of wound. Right upper sacral area has scar tissue, present on admission. Wound measures 5.5 cm x 3.5 cm x 0.6 cm. Recommend: Cleanse wound with normal saline. Place moisture barrier cream onto nathaly-wound. Apply Venelex ointment onto wound bed. Place one 1.6 inch TenderWet dressing into wound cavity. Cover with Sacral foam dressing. Perform wound care daily, and as needed for dressing soiling or dislodgement. 2. Sacral-Coccygeal area, right lateral aspect: Multiple areas of non-intact skin, present on admission. Non-intact sites have has 100% red tissue. No odor, no drainage. Periwounds intact. Site measures 2.7 cm x 1.5 cm. 3. Sacral-Coccygeal area, left lateral aspect: Multiple areas of non-intact skin, present on admission. Non-intact sites have has 100% red tissue. No odor, no drainage. Periwounds intact. Site measures 1.7 cm x 1.3 cm. Recommend continue: Cleanse wounds with normal saline. Place moisture barrier cream onto wounds and nathaly-wounds. Apply Venelex ointment onto any portion of wound beds not covered by barrier cream. Cover with Sacral foam dressing. Perform wound care daily, and as needed for dressing soiling or dislodgement. 4. Left Achilles area: Area of purple discoloration, present on admission. No odor no drainage, skin intact. Possible former sDTI site. Recommend continue: Cover site with foam dressing. Elevate, offload and float involved area one pillow lengthwise under extremity. Do not allow involved area to come in contact with pillow, bed, or other areas. Also recommend continue: Reposition patient nior-on-guoc only every 2 hours with pillow support, and off-load pressure areas with pillows for pressure re-distribution. Offload, elevate and float bilateral heels with one pillow lengthwise (Do not allow Left Achilles area to come in contact with pillow, bed, or other areas). Perform skin care and monitor skin integrity Q shift. Use moisture barrier cream on buttocks and other moisture susceptible areas QID and as needed for soiling. Place patient on a low air-loss mattress.
--- NOTE | 2018-03-23 12:00 | NUR ---
Wound consult Lamont in for wound consult and to help perform wound care.
--- NOTE | 2018-03-23 12:30 | NUR ---
Levophed Titration Levophed drip witnessed being adjusted to 2mcg/min
--- NOTE | 2018-03-23 12:30 | NUR ---
CHG CHG given and linens changed. PT tolerated well.
--- NOTE | 2018-03-23 13:44 | NUR ---
REPAGED DR GILMORE THROUGH [facility] SPOKE WITH NATIVIDAD.
--- NOTE | 2018-03-23 13:55 | NUR ---
Spoke with Dr. Gonzalez and orders received for a PICC line. Pt carissa has an IV to the left chest infusing levophed at 2 mcgs.
--- NOTE | 2018-03-23 14:00 | NUR ---
Levophed Titration Witnessed Levophed titrated up to 4 mcgs/min.
--- NOTE | 2018-03-23 14:15 | NUR ---
Spoke with mary beth Gray at [phone] and choosing the after hours option to speak with someone. Per Marina, she will have someone return my call.
--- NOTE | 2018-03-23 14:20 | NUR ---
Maryator Received a call back from Marina and she will have the director senior telecommunications consultant return my call.
--- NOTE | 2018-03-23 16:30 | NUR ---
Dr. Contreras at bedside examining Pt.
[2018-03-23] MEDS: ERTAPENEM SODIUM 1 GM in NS 50 ML IV SCH (16:47)
--- NOTE | 2018-03-23 17:40 | NUR ---
PICC Line PICC line in use. Flushed with NS and Blood return present. Rt upper subclavian IV discontinued.
[2018-03-23] MEDS: MONTELUKAST 10 MG TABLET PO SCH (17:42)
--- NOTE | 2018-03-23 19:15 | NUR ---
Endorsement Report given to Ankit FORD at bedside via SBAR approach. Pt showing no s/s of distress or discomfort. VSS. Pt remains on Levophed @ 4mcg/min.
--- NOTE | 2018-03-23 19:45 | NUR ---
PM ASSESSMENT Received pt in bed w/ eyes closed, pt is lethargic and contracted. No signs of acute distress or discomfort noted. VSS w/ SR 100% paced seen on the monitor. Pt is on vent w/ vent settings: AC 16, TV 500, FIO2 40%, and PEEP of 5. Pt has a CARMELA picc line infusing levophed @ 4mcg/min and LFA 20g saline locked. OG tube noted. Burnett catheter in place draining urine to gravity. Bed is locked and in lowest position, call light w/in reach, will continue to monitor.
[2018-03-23] MEDS: LORazepam 2 MG/ML VIAL IVP PRN (22:39)
[2018-03-24] VITALS (32 sets, daily range): BP systolic 85–135
--- NOTE | 2018-03-24 02:20 | NUR ---
RN ROUNDS Pt in bed w/ eyes closed, no signs of acute distress or discomfort noted. VSS w/ SR 100% paced seen on the monitor. Pt vent settings AC: 16, TV 500, FiO2 40%, PEEP of 5 w/ O2 sats @ 100% and even and unlabored breathing. Pt on levophed drip 4 mcg/min w/ BP @ 109/71. HOB elevated, bed is locked and in lowest position, call light w/in reach, will continue to monitor.
[2018-03-24] MEDS: NOREPINEPHRINE BITARTRATE 4 MG in D5W 246 ML IV PRN ×2 (03:56→18:32)
[2018-03-24] MEDS: D5W 1,000 ML IV SCH ×2 (04:12→18:07)
[2018-03-24] MEDS: metroNIDAZOLE 500 mg/NS 100 ML IV SCH ×3 (05:59→21:37)
[2018-03-24] MEDS: LEVOTHYROXINE SODIUM 0.1 MG TABLET PO SCH (06:29)
--- NOTE | 2018-03-24 07:22 | NUR ---
OPENING NOTE: Received SBAR report and plan of care from night RN.
--- NOTE | 2018-03-24 07:22 | NUR ---
ENDORSEMENT Report given to Danilo and Jarocho FORD using SBAR format. Pt in bed w/ eyes closed, no signs of acute distress or discomfort noted. Levophed drip @ 3 mcg/min.
--- NOTE | 2018-03-24 08:00 | NUR ---
ROUNDS: Performed 8:00 assessment, see flow sheet, patient remains lethargic and non verbal, intubated on mechanical vent. LT forearm peripheral IV clean, dry and intact, flushed well, patent. RT upper arm PICC line, clean, dry and intact, flushed well, patent, with IV pump running. Levophed drip running, see flow sheet. OGTube secured and intact, patent, clamped off. Bed locked in lowest position, seizure precautions in place. Will continue to monitor.
--- NOTE | 2018-03-24 08:10 | NUR ---
DR Salvatore AUGUSTIN AT BEDSIDE
--- NOTE | 2018-03-24 08:20 | NUR ---
FAMILY SEARCH Called Jairo Mccauley for contact information for family, they had a listed as Carlene Hernandez , and piano case maker at [facility] Gaby Boyce . Called both unable to reach, left messages for both to call ICU for plan of care.
--- NOTE | 2018-03-24 08:30 | NUR ---
DR DAVISON AT BEDSIDE Addendum: 03/24/18 at 0903 by Danilo Lopez RN [id number] Davison regarding ET tube placement and OG tube placement, ET tube per Dr. Davison is a little high, informed her that yesterday RT pushed the ET tube down 2cm per Dr. Chi orders, lip line is now 24. Per Dr. Davison OG tube is in the correct position, follow up was done with Radiologist to confirm placement, OG is in correct place - ok to use.
[2018-03-24] MEDS: TOPIRAMATE 100 MG TABLET(Topamax) PO SCH ×2 (09:31→21:35)
[2018-03-24] MEDS: POTASSIUM CHLORIDE 10 MEQ TAB.PRT.SR PO SCH (09:31)
[2018-03-24] MEDS: OXYBUTYNIN CHLORIDE 5 MG TABLET PO SCH ×2 (09:31→21:35)
[2018-03-24] MEDS: PANTOPRAZOLE SODIUM 40 MG TAB PO SCH (09:31)
[2018-03-24] MEDS: PRAMIPEXOLE DI-HCL 1 MG TABLET PO SCH ×2 (09:31→21:36)
[2018-03-24] MEDS: CALCIUM CARBONATE/VITAMIN D3 1 TAB TABLET PO SCH ×2 (09:31→21:35)
[2018-03-24] MEDS: ASCORBIC ACID 500 MG TABLET PO SCH ×2 (09:31→21:35)
[2018-03-24] MEDS: DOCUSATE SODIUM 100 MG CAPSULE PO SCH ×2 (09:32→21:35)
[2018-03-24] MEDS: LACOSAMIDE 100 MG TABLET PO SCH ×2 (09:32→21:35)
[2018-03-24] MEDS: BALSAM PERU/CASTOR OIL 60 GM OINT...G. TP SCH (09:32)
[2018-03-24] MEDS: ENOXAPARIN SODIUM 40 MG/0.4 ML SYRINGE SUBCUT SCH (09:43)
--- NOTE | 2018-03-24 10:00 | NUR ---
Nutrition Note RD received call/voicemail from pt's primary RN regarding TF rec and implementation per Dr. Roberts. Previous RD rec for Pivot 1.5 at 45 ml/hr, Free Water Flush: 250 ml Q6h is still appropriate as per Nutrition Assessment completed on 03/22/[address] RD spoke w/ full charge bookkeeper regarding TF order/placement. Pt was confirmed to have a functional OGT at this time. RD implemented TF order per MD via TO/RB; TF will begin this morning -- [facility] staff to provide TF formula. RD to continue to follow as per nutrition care standards.
--- NOTE | 2018-03-24 10:11 | NUR ---
Paged Dr. Shah for orders, spoke with exchange, waiting for call back.
--- NOTE | 2018-03-24 10:16 | NUR ---
Reported ABG results to Dr. Shah, no further orders. Inquired of MD if she wants ET tube pushed down as discussed before, ordered for RT to push ET tube down 1cm, called RT to inform. Addendum: 03/24/18 at 1033 by Danilo Lopez RN RT recommended to not push down ET tube, positional problem most likely with XRAY and patient's position of head and neck, patient's o2 saturation is 100% and is receiving volume as ordered per RT, will inform Dr. Shah.
--- NOTE | 2018-03-24 10:35 | NUR ---
RT NOTES 1035 ICU 7 FOUND PT VENT SETTINGS AT AC 16,500, PEEP 5, 40% 7.5 @ 22LL. GOT ORDER FROM DR DAVISON TO PUSH DOWN ETT 1CM. BUT PER RT ASSESSMENT, PT RECEIVED ADEQUATE VOLUME AND PT SATURATION 100%. RECOMMEND NOT TO FURTHER PUSH 1CM ANYMORE, UNLESS PT DESAT LATER ON. WILL CONTINUE MONITOR PT. LOGAN MORRIS AND LOGAN VILLAR.
--- NOTE | 2018-03-24 12:00 | NUR ---
ROUNDS: Performed 12:00 assessment, see flow sheet, patient remains lethargic and non verbal, intubated on mechanical vent. LT forearm peripheral IV clean, dry and intact, flushed well, patent. RT upper arm PICC line, clean, dry and intact, flushed well, patent, with IV pump running. Levophed drip running, see flow sheet. OGTube secured and intact, patent, feeding pump running. Bed locked in lowest position, seizure precautions in place. Will continue to monitor.
--- NOTE | 2018-03-24 13:30 | NUR ---
WOUND CARE/CHG: Performed CHG bath and wound care, contact precautions maintained, patient tolerated well.
[2018-03-24] MEDS ORDERED: POTASSIUM CHLORIDE 20 MEQ/PKT PACKET PO ONE (14:30)
[2018-03-24] MEDS: ERTAPENEM SODIUM 1 GM in NS 50 ML IV SCH (15:57)
--- NOTE | 2018-03-24 16:00 | NUR ---
ROUNDS: Performed 16:00 assessment, see flow sheet, patient remains lethargic and non verbal, intubated on mechanical vent. Patient is resting with eyes closed. No signs of pain or discomfort noted. LT forearm peripheral IV clean, dry and intact, flushed well, patent. RT upper arm PICC line, clean, dry and intact, flushed well, patent, with IV pump running. Levophed drip running, see flow sheet. OGTube secured and intact, patent, feeding pump running. Bed locked in lowest position, seizure precautions in place. Will continue to monitor.
[2018-03-24] MEDS: MONTELUKAST 10 MG TABLET PO SCH (18:07)
--- NOTE | 2018-03-24 19:15 | NUR ---
CLOSING NOTE: Gave bedside SBAR report and endorsed plan of care to night RN.
--- NOTE | 2018-03-24 19:30 | NUR ---
PM ASSESSMENT Received pt in bed w/ eyes closed, pt is lethargic and contracted. No signs of acute distress or discomfort noted. VSS w/ SR 100% paced seen on the monitor. Pt is on vent w/ vent settings: AC 16, TV 500, FIO2 40%, and PEEP of 5. Pt has a CARMELA picc line infusing levophed @ 5 mcg/min and LFA 20g saline locked. OG tube noted infusing Pivot 1.5 tubefeeding @ 45 cc/hr. Burnett catheter in place draining urine to gravity. Bed is locked and in lowest position, call light w/in reach, will continue to monitor.
[2018-03-25] VITALS (32 sets, daily range): BP systolic 81–131
[2018-03-25] MEDS ORDERED: NOREPINEPHRINE 4 MG/4 ML VIAL IV ONE ×2 (03:07)
--- NOTE | 2018-03-25 04:00 | NUR ---
Tubefeeding Pt's residual was 265 cc's, tubefeeding held per doctors orders, will recheck residual.
[2018-03-25] MEDS: NOREPINEPHRINE BITARTRATE 4 MG in D5W 246 ML IV PRN ×4 (04:06→23:19)
[2018-03-25] MEDS: metroNIDAZOLE 500 mg/NS 100 ML IV SCH ×2 (05:32→14:45)
--- NOTE | 2018-03-25 06:00 | NUR ---
Tubefeeding Pt's residual was 10cc's, tubefeeding restarted at 45 cc/hr per order. Will continue to monitor.
[2018-03-25] MEDS: LEVOTHYROXINE SODIUM 0.1 MG TABLET PO SCH (06:24)
[2018-03-25 06:58] LABS: CALCIUM 8.6 mg/dL (8.4-11.0); CREATININE 0.72 mg/dL (0.55-1.30)
[2018-03-25 07:03] LABS: EOSINOPHILS # (AUTO) 0.2 K/uL (0.0-0.4); EOSINOPHILS % (AUTO) 2.1 % (0.0-4.0); HEMATOCRIT 36.6 % (36-54); HEMOGLOBIN 12.4 g/dL (14.0-18.0); LYMPHOCYTES # (AUTO) 0.6 K/uL (1.0-5.5); LYMPHOCYTES % (AUTO) 7.1 % (20.5-51.5); MEAN CORPUSCULAR HEMOGLOBIN 30 pg (27-31); MEAN CORPUSCULAR HGB CONC 34 % (32-36); MEAN CORPUSCULAR VOLUME 88 fL (79.0-98.0); MONOCYTES # (AUTO) 0.1 K/uL (0.0-1.0); MONOCYTES % (AUTO) 1.6 % (1.7-9.3); NEUTROPHILS # (AUTO) 7.9 K/uL (1.8-7.7); NEUTROPHILS % (AUTO) 89.2 % (40.0-70.0); PLATELET COUNT (AUTO) 275 K/uL (130-430); RED BLOOD CELL COUNT(AUTO) 4.17 MIL/uL (4.2-6.2); RED CELL DISTRIBUTION WIDTH 13.3 % (9.0-15.0); WHITE BLOOD COUNT (AUTO) 8.8 K/uL (4.8-10.8)
[2018-03-25 07:15] LABS: ALBUMIN 1.9 g/dL (3.4-4.8); TOTAL BILIRUBIN 0.3 mg/dL (0.0-1.0)
--- NOTE | 2018-03-25 07:15 | NUR ---
OPENING NOTE: Received SBAR report and plan of care from night RN
--- NOTE | 2018-03-25 07:15 | NUR ---
ENDORSEMENT Report given to Santiago FORD using sbar format. Pt in bed w/ eyes closed, no signs of acute distress or discomfort noted.
[2018-03-25] MEDS: LACOSAMIDE 100 MG TABLET PO SCH ×2 (08:16→22:43)
[2018-03-25] MEDS: DOCUSATE SODIUM 100 MG CAPSULE PO SCH ×2 (08:16→22:42)
[2018-03-25] MEDS: CALCIUM CARBONATE/VITAMIN D3 1 TAB TABLET PO SCH ×2 (08:16→22:42)
[2018-03-25] MEDS: PANTOPRAZOLE SODIUM 40 MG TAB PO SCH (08:17)
[2018-03-25] MEDS: ASCORBIC ACID 500 MG TABLET PO SCH ×2 (08:17→22:42)
[2018-03-25] MEDS: OXYBUTYNIN CHLORIDE 5 MG TABLET PO SCH ×2 (08:17→21:00)
[2018-03-25] MEDS: POTASSIUM CHLORIDE 10 MEQ TAB.PRT.SR PO SCH (08:17)
[2018-03-25] MEDS: TOPIRAMATE 100 MG TABLET(Topamax) PO SCH ×2 (08:17→22:42)
[2018-03-25] MEDS: PRAMIPEXOLE DI-HCL 1 MG TABLET PO SCH ×2 (08:18→22:44)
--- NOTE | 2018-03-25 08:20 | NUR ---
DR DAVISON AT BEDSIDE
--- NOTE | 2018-03-25 08:30 | NUR ---
DR AUGUSTIN AT BEDSIDE
[2018-03-25] MEDS: ENOXAPARIN SODIUM 40 MG/0.4 ML SYRINGE SUBCUT SCH (08:42)
[2018-03-25] MEDS: BALSAM PERU/CASTOR OIL 60 GM OINT...G. TP SCH (08:42)
--- NOTE | 2018-03-25 08:50 | NUR ---
DR THOMPSON AT BEDSIDE Addendum: 03/25/18 at 1419 by Reese Dunlap RN DISREGARD, CHARTED TO WRONG PATIENT
--- NOTE | 2018-03-25 09:38 | NUR ---
RT NOTES 0700 RT DID ABG AND VENT CHECK. AC 16, 500, 5+, 40%. ETT 7.5/[address] DAVISON ORDER TO PUSH DOWN ETT 1CM. 0938 PUSHED DOWN ETT TO 24CM LL. PT TOLERATING VENT. ADEQUATE VOLUME 535 VT. PT SATURATION 100%. LOGAN HAHN AWARE.
--- NOTE | 2018-03-25 10:35 | NUR ---
WITNESSED LEVOPHED INCREASED TO 8 MCG/MIN
[2018-03-25] MEDS: D5W 1,000 ML IV SCH (11:32)
--- NOTE | 2018-03-25 13:35 | NUR ---
DR RUDOLPH AT BEDSIDE
--- NOTE | 2018-03-25 13:52 | NUR ---
WITNESSED LEVOPHED INCREASED TO 10 MCG/MIN
--- NOTE | 2018-03-25 14:45 | NUR ---
Nutrition F/U Admitting Diagnosis Pyelonephritis Reviewed Pertinent Medical/Surgical Hx Medical Record Primary RN Medical History Comment: PMH: Parkinson's Dz, recurrent UTI, seizures, atr fibr, s/p pacemaker, previous DVTs per MD notes Pt also found w/ UTI, possible pneumonia, ALOC per MD notes 03/25/18 MD Progress Note: acute respiratory failure on mechanical vent, s/p cardiac arrest, ventricular tachycardia, aspiration pneumonia, chronic encephalopathy, seizures, Parkinson's, ESBL E. coli UTI Subjective Information Pt was undergoing wound care at time of RD visit. Per RN, pt continues on Pivot 1.5 at 45 ml/hr w/ water flush of 250 ml Q6h via OGT. RN stated that TF was held earlier this morning around 0400 d/t high residuals after infusion of water flush, however, TF was resumed around 0600 once residuals were 10 cc's. Per EMR, TF Intakes: 450 ml 03/25/18. Residuals: 375 ml 03/25/18. Abd is soft and non-distended w/ active bowel sounds. I/O: 488/375 (+113 ml) per 12 hours. Current TF remains appropriate. Current Diet Order/Nutrition Support Pivot 1.5 at 45 ml/hr, Free Water Flush: 250 ml Q6h via OGT x1 day Patient/Significant Other Unable To Verbalize Education Provided Not Indicated Pertinent Medications k-dur, synthroid, colace, os-jeanine, VIT C, protonix Pertinent Labs Na 137 WNL (improved), K 4 WNL (improved), BG 140 H, BUN 10 WNL (improved), ALB 1.9 L , RBC 4.17 L, Hgb 12.4 L, Cl 106 WNL (improved) Height (Feet) 6 feet Height (Inches) 0.00 inches Weight (Pounds) 130 pounds (03/19/18) Weight (Calculated Kilograms) 58.108153 kilograms Patient Weight 58.967 kg Body Mass Index 17.63 kg/m2 %IBW 73 [place]/Adjusted Body Weight IBW: 178 lb, 81 kg Weight Status Underweight Gastrointestinal Symptoms None Difficulty With: Chewing Swallowing Food Allergies unable to verify Usual Diet At Home Pureed honey thick liquids per EMR Skin Integrity Comment: Damon scale: 10; Per Leather Cleaner note (03/23/18): 1. Sacral-Coccygeal area: Stage IV pressure ulcer, present on admission. 2. Sacral-Coccygeal area, right lateral aspect: Multiple areas of non-intact skin, present on admission. 3. Sacral-Coccygeal area, left lateral aspect: Multiple areas of non-intact skin, present on admission. 4. Left Achilles area: Area of purple discoloration, present on admission. Bilateral ankle w/ 1+ pitting edema Current % PO N/A on NPO NEW Estimated Energy Expenditure (kcals/day) 1597 kcal/day (PSU 2003b MSJ CBW for critical illness/vent support) Estimated Protein Required (g/day) 97-122 gm/day (1.2-1.5 gm/kg IBW for wt gain, wounds) Estimated Fluid Required (l/day) 1.8 L/day (30 ml/kg CBW for geriatric maintenance) Problem/Etiology/Signs/Symptoms Chewing/swallowing difficulty related to cognitive limitations as evidenced by lethargy and inability to take PO diet at lunch. *ongoing Expected Outcomes/Goals - Monitor provision of EN support and intake w/ goal of pt meeting at least 50% of estimated nutritional needs, labs trending WNL, normal GI function, and skin integrity/wt maintenance Dietitian Recommendations * Recommend continuing Pivot 1.5 at 45ml/hr, Free Water Flush: 250 ml Q6h via OGT Provides: 1620 kcal/day, 101 gm protein/day, and 1820 ml free water/day Meets: 99% of estimated caloric needs and 83% of upper end of estimated protein needs Follow Up High Risk: F/U in 2-3 days
--- NOTE | 2018-03-25 15:30 | NUR ---
WOUND CARE/CHG: Gave CHG bath and completed wound care per wound care guidelines, patient tolerated well, with no signs of pain or discomfort.
[2018-03-25] MEDS: ERTAPENEM SODIUM 1 GM in NS 50 ML IV SCH (15:55)
[2018-03-25] MEDS: MONTELUKAST 10 MG TABLET PO SCH (18:00)
--- NOTE | 2018-03-25 19:24 | NUR ---
CLOSING NOTE: Gave bedside SBAR report and endorsed plan of care to night RN
--- NOTE | 2018-03-25 20:00 | NUR ---
ASSESSMENT Pt non-verbal, response to noxious stimuli, by opening eyes. Pt tolerating current vent settings. PICC line present CARMELA, no redness or swelling noted @ site. IVF infusing. Oral gastric tube present with continuous feeding in progress. Burnett catheter in use draining rob color urine. Skin not intact, multiple ulcers present. Low air loss mattress in use.
[2018-03-26] VITALS (32 sets, daily range): BP systolic 74–143
[2018-03-26] MEDS: NOREPINEPHRINE BITARTRATE 4 MG in D5W 246 ML IV PRN ×3 (04:55→17:37)
[2018-03-26] MEDS ORDERED: NOREPINEPHRINE 4 MG/4 ML VIAL IV ONE (04:55)
[2018-03-26] MEDS: PANTOPRAZOLE SODIUM 40 MG TAB PO SCH (06:34)
[2018-03-26] MEDS: LEVOTHYROXINE SODIUM 0.1 MG TABLET PO SCH (06:35)
--- NOTE | 2018-03-26 07:27 | NUR ---
AM ROUNDS: Report received from LOGAN Bowen for continuation of care. Patient is resting in bed comfortably. No signs or symptoms of distress noted.
--- NOTE | 2018-03-26 07:30 | NUR ---
Levophed Titration Levophed titrated down to 10 mcgs/min
[2018-03-26 07:44] LABS: BASOPHILS % (AUTO) 0.1 % (0.0-2.0); EOSINOPHILS # (AUTO) 0.2 K/uL (0.0-0.4); EOSINOPHILS % (AUTO) 2.3 % (0.0-4.0); HEMATOCRIT 45.1 % (36-54); HEMOGLOBIN 15.1 g/dL (14.0-18.0); LYMPHOCYTES # (AUTO) 0.8 K/uL (1.0-5.5); LYMPHOCYTES % (AUTO) 9.6 % (20.5-51.5); MEAN CORPUSCULAR HEMOGLOBIN 30 pg (27-31); MEAN CORPUSCULAR HGB CONC 34 % (32-36); MEAN CORPUSCULAR VOLUME 90 fL (79.0-98.0); MONOCYTES # (AUTO) 0.4 K/uL (0.0-1.0); MONOCYTES % (AUTO) 5.5 % (1.7-9.3); NEUTROPHILS # (AUTO) 6.7 K/uL (1.8-7.7); PLATELET COUNT (AUTO) 226 K/uL (130-430); RED CELL DISTRIBUTION WIDTH 13.8 % (9.0-15.0); WHITE BLOOD COUNT (AUTO) 8.1 K/uL (4.8-10.8)
[2018-03-26 07:57] LABS: CALCIUM 8.8 mg/dL (8.4-11.0); CREATININE 0.89 mg/dL (0.55-1.30); POTASSIUM 3.8 mmol/L (3.5-5.1)
[2018-03-26 08:09] LABS: ALBUMIN 2.2 g/dL (3.4-4.8); TOTAL BILIRUBIN 0.3 mg/dL (0.0-1.0)
[2018-03-26] MEDS: ENOXAPARIN SODIUM 40 MG/0.4 ML SYRINGE SUBCUT SCH (08:29)
[2018-03-26] MEDS: DOCUSATE SODIUM 100 MG CAPSULE PO SCH ×2 (08:29→22:39)
[2018-03-26] MEDS: BALSAM PERU/CASTOR OIL 60 GM OINT...G. TP SCH (08:29)
[2018-03-26] MEDS: OXYBUTYNIN CHLORIDE 5 MG TABLET PO SCH ×2 (08:30→21:00)
[2018-03-26] MEDS: TOPIRAMATE 100 MG TABLET(Topamax) PO SCH ×2 (08:30→22:39)
[2018-03-26] MEDS: POTASSIUM CHLORIDE 10 MEQ TAB.PRT.SR PO SCH (08:30)
[2018-03-26] MEDS: PRAMIPEXOLE DI-HCL 1 MG TABLET PO SCH ×2 (08:30→22:40)
[2018-03-26] MEDS: ASCORBIC ACID 500 MG TABLET PO SCH ×2 (08:30→22:38)
[2018-03-26] MEDS: CALCIUM CARBONATE/VITAMIN D3 1 TAB TABLET PO SCH ×2 (08:30→22:38)
[2018-03-26] MEDS: LACOSAMIDE 100 MG TABLET PO SCH ×2 (08:30→22:38)
--- NOTE | 2018-03-26 08:45 | NUR ---
Levophed Titration Levophed titrated down to 8 mcgs/min
--- NOTE | 2018-03-26 09:00 | NUR ---
MD ROUNDS: Dr. Gonzalez in to see patient.
--- NOTE | 2018-03-26 09:30 | NUR ---
MD ROUNDS: Dr. Shah in to see patient.
[2018-03-26 10:23] LABS: NEUTROPHILS % (AUTO) 82.5 % (40.0-70.0)
--- NOTE | 2018-03-26 10:45 | NUR ---
Levophed Titration Levophed titrated down to 6 mcgs/min
--- NOTE | 2018-03-26 11:00 | NUR ---
Levophed Titration Levophed titrated up to 8 mcgs/min
--- NOTE | 2018-03-26 11:28 | NUR ---
Dietitian Recommendations * Recommend continuing Pivot 1.5 at 45ml/hr, Free Water Flush: 250 ml Q6h via OGT Provides: 1620 kcal/day, 101 gm protein/day, and 1820 ml free water/day Meets: 99% of estimated caloric needs and 83% of upper end of estimated protein needs LP, RD Please refer to Nutrition F/U for details.
[2018-03-26] MEDS: D5W 1,000 ML IV SCH (12:02)
--- NOTE | 2018-03-26 12:45 | NUR ---
Levophed Titration Levophed titrated up to 10 mcgs/min
--- NOTE | 2018-03-26 13:00 | NUR ---
Levophed Titration Levophed titrated up to 12 mcgs/min
--- NOTE | 2018-03-26 13:00 | NUR ---
Levophed Titration Levophed titrated up to 14 mcgs/min Addendum: 03/26/18 at 1707 by Roxi Salinas RN above entry occurred at 1315, not 1300 as indicated.
--- NOTE | 2018-03-26 14:00 | NUR ---
RT NOTES INCREASED FIO2 TO 40% DUE TO PT DESATURATES FROM TIME TO TIME. RN GURJIT MADE AWARE. WILL CONTINUE MONITOR.
--- NOTE | 2018-03-26 15:45 | NUR ---
Levophed Titration levophed witnessed being titrated down to 12 mcg/min
[2018-03-26] MEDS: ERTAPENEM SODIUM 1 GM in NS 50 ML IV SCH (15:53)
--- NOTE | 2018-03-26 16:00 | NUR ---
Levophed Titration levophed witnessed being titrated down to 10 mcg/min
[2018-03-26] MEDS: MONTELUKAST 10 MG TABLET PO SCH (17:40)
--- NOTE | 2018-03-26 19:19 | NUR ---
CLOSING NOTE: Report given to LOGAN Bowen for continuation of care. Patient is resting in bed. No signs or symptoms of distress noted.
--- NOTE | 2018-03-26 20:00 | NUR ---
ASSESSMENT Pt resting quietly. Orally intubated, tolerating current vent settings. Oral gastric tube in place. Irrigated with air, to check for placement. OGT connected to continuous feeding. PICC line present right upper arm, no redness or swelling noted @ site. Burnett Catheter in use. Skin breakdown present, Pt on low air loss mattress.
[2018-03-27] VITALS (29 sets, daily range): BP systolic 82–142
[2018-03-27] MEDS: NOREPINEPHRINE BITARTRATE 4 MG in D5W 246 ML IV PRN (00:55)
[2018-03-27] MEDS: LEVOTHYROXINE SODIUM 0.1 MG TABLET PO SCH (07:09)
[2018-03-27] MEDS: PANTOPRAZOLE SODIUM 40 MG TAB PO SCH (07:09)
[2018-03-27 07:15] LABS: CALCIUM 8.3 mg/dL (8.4-11.0); CREATININE 0.86 mg/dL (0.55-1.30); POTASSIUM 3.7 mmol/L (3.5-5.1)
--- NOTE | 2018-03-27 07:30 | NUR ---
Levophed witness Levophed witnessed infusing at 7 mcgs/min
[2018-03-27 07:31] LABS: BASOPHILS % (AUTO) 0.1 % (0.0-2.0); EOSINOPHILS # (AUTO) 0.2 K/uL (0.0-0.4); EOSINOPHILS % (AUTO) 2.3 % (0.0-4.0); LYMPHOCYTES # (AUTO) 0.8 K/uL (1.0-5.5); LYMPHOCYTES % (AUTO) 11.9 % (20.5-51.5); MEAN CORPUSCULAR HEMOGLOBIN 30 pg (27-31); MEAN CORPUSCULAR HGB CONC 34 % (32-36); MEAN CORPUSCULAR VOLUME 90 fL (79.0-98.0); MONOCYTES # (AUTO) 0.4 K/uL (0.0-1.0); MONOCYTES % (AUTO) 5.6 % (1.7-9.3); NEUTROPHILS # (AUTO) 5.3 K/uL (1.8-7.7); NEUTROPHILS % (AUTO) 80.1 % (40.0-70.0); PLATELET COUNT (AUTO) 228 K/uL (130-430); RED BLOOD CELL COUNT(AUTO) 3.68 MIL/uL (4.2-6.2); RED CELL DISTRIBUTION WIDTH 13.8 % (9.0-15.0); WHITE BLOOD COUNT (AUTO) 6.7 K/uL (4.8-10.8)
--- NOTE | 2018-03-27 07:40 | NUR ---
AM Assessment Pt in bed w/ eyes closed. ETT in place. SR shown on monitor. Pt has pacemaker in place. No s/s of distress or discomfort noted. Burnett catheter in place draining yellow urine to gravity. Pt has OG tube in place, on tube feeding. Tolerating well, <5 ml residual noted. Pt has CARMELA PICC line in place. Levophed running at 7 mcg/min. Skin not intact. Q2H turn interventions in place. Pt on low air loss mattress. Bed locked in lowest position, safety precautions in place, call light in reach. Will continue to monitor.
[2018-03-27 07:51] LABS: HEMOGLOBIN 11.1 g/dL (14.0-18.0)
--- NOTE | 2018-03-27 08:00 | NUR ---
Levophed witness Levophed rate witnessed being adjusted to 9 mcgs/min.
--- NOTE | 2018-03-27 08:40 | NUR ---
Dr. Gonzalez at bedside examining Pt. Will carry out any new orders as ordered.
--- NOTE | 2018-03-27 09:20 | NUR ---
Dr. Shah at bedside examining Pt. Will carry out new orders.
[2018-03-27] MEDS: DOCUSATE SODIUM 100 MG CAPSULE PO SCH ×2 (09:26→20:26)
[2018-03-27] MEDS: LACOSAMIDE 100 MG TABLET PO SCH ×2 (09:26→20:25)
[2018-03-27] MEDS: PRAMIPEXOLE DI-HCL 1 MG TABLET PO SCH ×2 (09:26→20:26)
[2018-03-27] MEDS: POTASSIUM CHLORIDE 10 MEQ TAB.PRT.SR PO SCH (09:26)
[2018-03-27] MEDS: ASCORBIC ACID 500 MG TABLET PO SCH ×2 (09:27→20:26)
[2018-03-27] MEDS: BALSAM PERU/CASTOR OIL 60 GM OINT...G. TP SCH (09:27)
[2018-03-27] MEDS: CALCIUM CARBONATE/VITAMIN D3 1 TAB TABLET PO SCH ×2 (09:27→20:26)
[2018-03-27] MEDS: OXYBUTYNIN CHLORIDE 5 MG TABLET PO SCH ×2 (09:27→20:25)
[2018-03-27] MEDS: TOPIRAMATE 100 MG TABLET(Topamax) PO SCH ×2 (09:27→20:25)
[2018-03-27] MEDS: ENOXAPARIN SODIUM 40 MG/0.4 ML SYRINGE SUBCUT SCH (09:28)
[2018-03-27] MEDS: 0.45% NACL 1,000 ML IV SCH (11:59)
[2018-03-27] MEDS: ERTAPENEM SODIUM 1 GM in NS 50 ML IV SCH (15:14)
--- NOTE | 2018-03-27 15:30 | NUR ---
CHG CHG given and linens changed. Wound care performed. Pt tolerated well.
--- NOTE | 2018-03-27 17:05 | NUR ---
Dr. Contreras at bedside examining Pt. Will carry out any orders as ordered.
[2018-03-27] MEDS: MONTELUKAST 10 MG TABLET PO SCH (17:12)
[2018-03-27] MEDS ORDERED: VANCOMYCIN HCL 1000 MG/VIAL IV ONE (19:17)
--- NOTE | 2018-03-27 19:30 | NUR ---
PM Assessment No change in Pt status. No s/s of distress noted. CARMELA PICC line C/D/I. Flushed with NS and blood return present. Levophed drip running @7 mcg/min. OG tube in place, no residual noted. Burnett in place draining urine to gravity. Bed locked in lowest position, call light in reach, will continue to monitor.
[2018-03-27] MEDS ORDERED: VANCOMYCIN HCL 1 GM/NS PREMIX 250 ML IV ONE (20:00)
--- NOTE | 2018-03-27 20:45 | NUR ---
Pt vomited small amount. Tube feeding stopped. Will continue to monitor.
--- NOTE | 2018-03-27 22:20 | NUR ---
PM ASSESSMENT Report received from Ezio FORD using SBAR format. Pt in bed w/ eyes closed, no signs of acute distress or discomfort noted. VSS w/ SR 100% paced seen on the monitor. Pt on vent w/ vent settings @ AC 12, TV 500, FiO2 40% and PEEP of 5 tolerating well w/ even and unlabored breathing and O2 sats @ 100%. Pt has a og tube w/ tubefeeding Pivot 1.5. Tubefeeding is currently off d/t pt vomitting. Pt has a CARMELA picc infusing Levophed @ 9 mcg/min. Pt has a bernard cath draining urine to gravity. Isolation precautions observed. Bed is locked and in lowest position, call light w/in reach, will continue to monitor.
[2018-03-28] VITALS (30 sets, daily range): BP systolic 95–138
--- NOTE | 2018-03-28 00:05 | NUR ---
TUBEFEEDING Pt's tubefeeding resumed at 45 cc/hr. Pt no longer vomitting and no residual's noted. Will continue to monitor.
[2018-03-28] MEDS: NOREPINEPHRINE BITARTRATE 4 MG in D5W 246 ML IV PRN ×4 (00:08→21:00)
[2018-03-28 06:36] LABS: BASOPHILS % (AUTO) 0.1 % (0.0-2.0); EOSINOPHILS # (AUTO) 0.1 K/uL (0.0-0.4); EOSINOPHILS % (AUTO) 1.5 % (0.0-4.0); HEMOGLOBIN 10.9 g/dL (14.0-18.0); LYMPHOCYTES # (AUTO) 0.6 K/uL (1.0-5.5); LYMPHOCYTES % (AUTO) 7.7 % (20.5-51.5); MEAN CORPUSCULAR HEMOGLOBIN 30 pg (27-31); MEAN CORPUSCULAR HGB CONC 33 % (32-36); MEAN CORPUSCULAR VOLUME 91 fL (79.0-98.0); MONOCYTES # (AUTO) 0.4 K/uL (0.0-1.0); MONOCYTES % (AUTO) 5.8 % (1.7-9.3); NEUTROPHILS # (AUTO) 6.1 K/uL (1.8-7.7); NEUTROPHILS % (AUTO) 84.9 % (40.0-70.0); PLATELET COUNT (AUTO) 271 K/uL (130-430); RED BLOOD CELL COUNT(AUTO) 3.63 MIL/uL (4.2-6.2); RED CELL DISTRIBUTION WIDTH 13.7 % (9.0-15.0); WHITE BLOOD COUNT (AUTO) 7.2 K/uL (4.8-10.8)
[2018-03-28] MEDS: LEVOTHYROXINE SODIUM 0.1 MG TABLET PO SCH (06:38)
[2018-03-28 07:10] LABS: CALCIUM 8.3 mg/dL (8.4-11.0); CREATININE 0.69 mg/dL (0.55-1.30); POTASSIUM 3.8 mmol/L (3.5-5.1)
--- NOTE | 2018-03-28 07:14 | NUR ---
ENDORSEMENT Report given to Helen FORD using SBAR format and endorsed care of pt. Pt in bed w/ eyes closed, no signs of acute distressed or discomfort noted.
[2018-03-28] MEDS: PANTOPRAZOLE SODIUM 40 MG TAB PO SCH (07:26)
--- NOTE | 2018-03-28 07:30 | NUR ---
AM ASSESSMENT Pt received laying in bed with eyes closed. Pt is intubated connected to vent with settings of AC 12, TV 500, FiO2 40%, PEEP 5 with oxygen saturation of 100% on the monitor. Pt has an OG tube administering Pivot 1.5 @ 45 cc/hr. Pt is contracted. Burnett cath in place draining yellow urine to gravity. Heart rate is paced on the monitor. Right Upper arm PICC infusing 1/2 NS @ 40 cc/hr with no sign of infiltration, will continue to monitor.
[2018-03-28] MEDS: ALBUTEROL SULFATE 0.083% 2.5 MG/3 ML VIAL.NEB INH PRN (08:02)
--- NOTE | 2018-03-28 08:12 | NUR ---
RT NOTES FIO2 to 35% per ABG results/titration order. No adverse reactions noted. Will monitor pt.
[2018-03-28] MEDS: LACOSAMIDE 100 MG TABLET PO SCH ×2 (09:08→20:25)
[2018-03-28] MEDS: ASCORBIC ACID 500 MG TABLET PO SCH ×2 (09:08→20:25)
[2018-03-28] MEDS: DOCUSATE SODIUM 100 MG CAPSULE PO SCH ×2 (09:08→20:24)
[2018-03-28] MEDS: OXYBUTYNIN CHLORIDE 5 MG TABLET PO SCH ×2 (09:08→20:24)
[2018-03-28] MEDS: TOPIRAMATE 100 MG TABLET(Topamax) PO SCH ×2 (09:08→20:24)
[2018-03-28] MEDS: POTASSIUM CHLORIDE 10 MEQ TAB.PRT.SR PO SCH (09:08)
[2018-03-28] MEDS: CALCIUM CARBONATE/VITAMIN D3 1 TAB TABLET PO SCH ×2 (09:09→20:25)
[2018-03-28] MEDS: BALSAM PERU/CASTOR OIL 60 GM OINT...G. TP SCH (09:10)
[2018-03-28] MEDS: 0.45% NACL 1,000 ML IV SCH (09:10)
[2018-03-28] MEDS: ENOXAPARIN SODIUM 40 MG/0.4 ML SYRINGE SUBCUT SCH (09:11)
[2018-03-28] MEDS: PRAMIPEXOLE DI-HCL 1 MG TABLET PO SCH ×2 (09:16→20:25)
[2018-03-28] MEDS: VANCOMYCIN HCL 1,000 MG in NS 250 ML IV SCH ×2 (10:15→21:29)
--- NOTE | 2018-03-28 13:30 | NUR ---
CHG Provided pt bed bath, CHG and linen change. Pt tolerated well, will continue to monitor.
--- NOTE | 2018-03-28 13:45 | NUR ---
Wound Care Wound care provided to pt per wound care orders. Wound cleaned with normal saline. Moisture barrier cream applied to nathaly-wound. Venelex ointment applied to wound bed. TenderWet 1.6 dressing placed into wound cavity. Cover with Sacral foam dressing. Pt tolerated well, will continue to monitor.
[2018-03-28] MEDS: MONTELUKAST 10 MG TABLET PO SCH (17:51)
--- NOTE | 2018-03-28 19:15 | NUR ---
Closing Notes Pt endorsed to Ankit RN using SBAR. No signs of acute distress or injury. Isolation precautions observed during shift.
--- NOTE | 2018-03-28 19:30 | NUR ---
PM ASSESSMENT Report received from Helen FORD using SBAR format. Pt in bed w/ eyes closed, no signs of acute distress or discomfort noted. VSS w/ SR 100% paced seen on the monitor. Pt on vent w/ vent settings @ AC 12, TV 500, FiO2 35% and PEEP of 5 tolerating well w/ even and unlabored breathing and O2 sats @ 100%. Pt has a og tube w/ tubefeeding Pivot 1.5. Pt has a CARMELA picc infusing Levophed @ 9 mcg/min and 1/2 NS. Pt has a bernard cath draining urine to gravity. Isolation precautions observed. Bed is locked and in lowest position, call light w/in reach, will continue to monitor.
[2018-03-29] VITALS (33 sets, daily range): BP systolic 92–142
--- NOTE | 2018-03-29 03:13 | NUR ---
RN ROUNDS Pt in bed w/ eyes closed, no signs of acute distress or discomfort noted. Pt still receiving levophed @ 9 mcg/min, tolerating well w/ BP @ 126/80. Pt also still receiving tubefeeding Pivot 1.5 @ 45 cc/hr, tolerating well w/ <10 cc of residual. VSS, w/ 100% Paced SR seen on the monitor. HOB up, bed is locked and in lowest position, call light w/in reach, will continue to monitor.
[2018-03-29] MEDS: NOREPINEPHRINE BITARTRATE 4 MG in D5W 246 ML IV PRN (04:42)
[2018-03-29 05:44] LABS: BASOPHILS % (AUTO) 0.4 % (0.0-2.0); EOSINOPHILS # (AUTO) 0.1 K/uL (0.0-0.4); EOSINOPHILS % (AUTO) 1.4 % (0.0-4.0); HEMATOCRIT 33.5 % (36-54); HEMOGLOBIN 11.3 g/dL (14.0-18.0); LYMPHOCYTES # (AUTO) 0.6 K/uL (1.0-5.5); LYMPHOCYTES % (AUTO) 6.7 % (20.5-51.5); MEAN CORPUSCULAR HEMOGLOBIN 30 pg (27-31); MEAN CORPUSCULAR HGB CONC 34 % (32-36); MEAN CORPUSCULAR VOLUME 88 fL (79.0-98.0); MONOCYTES # (AUTO) 0.6 K/uL (0.0-1.0); MONOCYTES % (AUTO) 7.2 % (1.7-9.3); NEUTROPHILS # (AUTO) 7.1 K/uL (1.8-7.7); NEUTROPHILS % (AUTO) 84.3 % (40.0-70.0); PLATELET COUNT (AUTO) 326 K/uL (130-430); RED BLOOD CELL COUNT(AUTO) 3.81 MIL/uL (4.2-6.2); RED CELL DISTRIBUTION WIDTH 13.9 % (9.0-15.0); WHITE BLOOD COUNT (AUTO) 8.4 K/uL (4.8-10.8)
[2018-03-29 05:57] LABS: CALCIUM 8.5 mg/dL (8.4-11.0); CREATININE 0.73 mg/dL (0.55-1.30); POTASSIUM 3.9 mmol/L (3.5-5.1)
[2018-03-29] MEDS: LEVOTHYROXINE SODIUM 0.1 MG TABLET PO SCH (06:19)
[2018-03-29] MEDS: PANTOPRAZOLE SODIUM 40 MG TAB PO SCH (07:23)
--- NOTE | 2018-03-29 07:28 | NUR ---
ENDORSEMENT Report given to Ezio FORD using SBAR format and pt care endorsed. Pt is in bed w/ eyes closed, no signs of acute distress or discomfort noted.
--- NOTE | 2018-03-29 07:35 | NUR ---
AM Assessment Pt in bed w/ eyes closed. ETT in place. SR shown on monitor. Pt has pacemaker in place. No s/s of distress or discomfort noted. Burnett catheter in place draining yellow urine to gravity. Pt has OG tube in place, on tube feeding. Tolerating well, no residual noted. Pt has CARMELA PICC line in place. Levophed running at 9 mcg/min. Skin not intact. Q2H turn interventions in place. Pt on low air loss mattress. Bed locked in lowest position, safety precautions in place, call light in reach. Will continue to monitor.
[2018-03-29] MEDS: TOPIRAMATE 100 MG TABLET(Topamax) PO SCH ×2 (09:28→22:12)
[2018-03-29] MEDS: POTASSIUM CHLORIDE 10 MEQ TAB.PRT.SR PO SCH (09:28)
[2018-03-29] MEDS: PRAMIPEXOLE DI-HCL 1 MG TABLET PO SCH ×2 (09:28→22:12)
[2018-03-29] MEDS: ASCORBIC ACID 500 MG TABLET PO SCH ×2 (09:29→22:12)
[2018-03-29] MEDS: OXYBUTYNIN CHLORIDE 5 MG TABLET PO SCH ×2 (09:29→21:00)
[2018-03-29] MEDS: LACOSAMIDE 100 MG TABLET PO SCH ×2 (09:29→22:12)
[2018-03-29] MEDS: DOCUSATE SODIUM 100 MG CAPSULE PO SCH ×2 (09:29→22:12)
[2018-03-29] MEDS: CALCIUM CARBONATE/VITAMIN D3 1 TAB TABLET PO SCH ×2 (09:29→22:12)
[2018-03-29] MEDS: ENOXAPARIN SODIUM 40 MG/0.4 ML SYRINGE SUBCUT SCH (09:30)
[2018-03-29] MEDS: BALSAM PERU/CASTOR OIL 60 GM OINT...G. TP SCH (09:31)
--- NOTE | 2018-03-29 10:00 | NUR ---
CHG CHG given and linens changed. Wound care done. Pt tolerated well. Will continue to monitor.
--- NOTE | 2018-03-29 10:00 | NUR ---
Dr. Gonzalez at bedside examining pt. Will carry out any new orders.
[2018-03-29] MEDS: 0.45% NACL 1,000 ML IV SCH (10:44)
[2018-03-29] MEDS: VANCOMYCIN HCL 1,000 MG in NS 250 ML IV SCH ×2 (10:45→22:00)
--- NOTE | 2018-03-29 10:55 | NUR ---
Dr. Shah at bedside examining Pt. Will carry out any new orders.
--- NOTE | 2018-03-29 11:30 | NUR ---
Consult Shahab Smart Dr. called spoke to guerline dialed [phone] Gonzalez
--- NOTE | 2018-03-29 11:40 | NUR ---
MD CALLED Spoke with Shahab James regarding consult for a TRACH. He said he would not be able to. Also stated he is out of town. Dr. Boone stated to find another consult.
--- NOTE | 2018-03-29 11:43 | NUR ---
MD Called Spoke with Dr. Gonzalez. Made aware of consult result with Dr. Boone. No new orders noted.
--- NOTE | 2018-03-29 16:18 | NUR ---
Nutrition F/U Admitting Diagnosis Pyelonephritis Reviewed Pertinent Medical/Surgical Hx Medical Record Patient Primary RN Medical History Comment: PMH: Parkinson's Dz, recurrent UTI, seizures, atr fibr, s/p pacemaker, previous DVTs per MD notes Pt also found w/ UTI, possible pneumonia, ALOC per MD notes 03/25/18 MD Progress Note: acute respiratory failure on mechanical vent, s/p cardiac arrest, ventricular tachycardia, aspiration pneumonia, chronic encephalopathy, seizures, Parkinson's, ESBL E. coli UTI Subjective Information Pt seen w/ RN at bedside providing care. Per RN, pt is tolerating TF well, w/ no residual this morning, no BM still. Per EMR, abd is soft w/ active bowel sounds. I/O: 1678/1575 +103ml, IV total intake 730ml per 12 hrs. TF intake 855ml per 24 hrs 03/28/18. LAst BM 03/25/[address] obtained wt w/ bedscale 147 lb (03/29/18). Current EN regimen is appropriate. Current Diet Order/Nutrition Support Pivot 1.5 at 45 ml/hr, Free Water Flush: 250 ml Q6h via OGT x5 days Patient/Significant Other Unable To Verbalize Education Provided Not Indicated Pertinent Medications k-dur, synthroid, colace, os-jeanine, VIT C, protonix, vancomycin, NaCl IVm lovenox Pertinent Labs Na 135 WNL (improved),BG 116 H, ALB 2.2 L, RBC 3.81 L, H/H 11.3 L/33.5L Height (Feet) 6 feet Height (Inches) 0.00 inches Weight (Pounds) 130 pounds (03/19/18) Weight (Calculated Kilograms) 58.314459 kilograms Patient Weight 58.967 kg Body Mass Index 17.63 kg/m2 %IBW 73 [place]/Adjusted Body Weight IBW: 178 lb, 81 kg Weight Status Underweight Gastrointestinal Symptoms None Difficulty With: Chewing Swallowing Food Allergies unable to verify Usual Diet At Home Pureed honey thick liquids per EMR Skin Integrity Comment: Damon scale: 12; Per Television Engineering Teacher note (03/23/18): 1. Sacral-Coccygeal area: Stage IV pressure ulcer, present on admission. 2. Sacral-Coccygeal area, right lateral aspect: Multiple areas of non-intact skin, present on admission. 3. Sacral-Coccygeal area, left lateral aspect: Multiple areas of non-intact skin, present on admission. 4. Left Achilles area: Area of purple discoloration, present on admission. Bilateral ankle w/ 1+ pitting edema Current % PO N/A on EN support NEW Estimated Energy Expenditure (kcals/day) 1597 kcal/day (PSU 2003b MSJ CBW for critical illness/vent support) Estimated Protein Required (g/day) 97-122 gm/day (1.2-1.5 gm/kg IBW for wt gain, wounds) Estimated Fluid Required (l/day) 1.8 L/day (30 ml/kg CBW for geriatric maintenance) Problem/Etiology/Signs/Symptoms Chewing/swallowing difficulty related to cognitive limitations as evidenced by lethargy and inability to take PO diet at lunch. *ongoing Expected Outcomes/Goals - Monitor tolerance to EN support and intake w/ goal of pt meeting at least 50% of estimated nutritional needs, labs trending WNL, normal GI function, and skin integrity/wt maintenance Dietitian Recommendations * Recommend continuing Pivot 1.5 at 45ml/hr, Free Water Flush: 250 ml Q6h via OGT Provides: 1620 kcal/day, 101 gm protein/day, and 1820 ml free water/day Meets: 99% of estimated caloric needs and 83% of upper end of estimated protein needs Follow Up High Risk: F/U in 2-3 days
--- NOTE | 2018-03-29 16:23 | NUR ---
Dietitian Recommendations * Recommend continuing Pivot 1.5 at 45ml/hr, Free Water Flush: 250 ml Q6h via OGT Provides: 1620 kcal/day, 101 gm protein/day, and 1820 ml free water/day Meets: 99% of estimated caloric needs and 83% of upper end of estimated protein needs Please see Nutrition F/U note for details. CHCF, RD
[2018-03-29] MEDS: MONTELUKAST 10 MG TABLET PO SCH (17:34)
--- NOTE | 2018-03-29 19:13 | NUR ---
Endorsement Report given to Jessi FORD at bedside via SBAR approach. Pt in bed w/ eyes closed. No s/s of distress or discomfort noted.
--- NOTE | 2018-03-29 20:00 | NUR ---
ASSESSMENT Pt resting quietly. Pt response to tactile stimuli by withdrawing. Swelling noted on upper & lower eyelid, left eye. Pt orally intubated, and tolerating current settings. PICC line present right upper arm, no redness or swelling noted. Burnett cath in use. Skin ulcers present. Low air loss mattress in use.
--- NOTE | 2018-03-29 22:32 | NUR ---
VANCOMYCIN TROUGH Vancomycin Trough 23.4. Night remote Pharmacy notify regarding result. Dose held, per Pato.
[2018-03-30] VITALS (34 sets, daily range): BP systolic 91–136
[2018-03-30] MEDS: NOREPINEPHRINE BITARTRATE 4 MG in D5W 246 ML IV PRN ×3 (02:14→17:52)
--- NOTE | 2018-03-30 06:00 | NUR ---
ASSESSMENT Pt non-verbal, response to tactile stimulus, by opening eyes. Pt orally intubated and tolerating current vet settings. PICC line present right upper arm with IVF infusing, Levophed in use for BP support. Oral gastric tube present with continuous feeding in progress. Burnett cath present. Skin with ulcers present. Low air loss mattress in use.
--- NOTE | 2018-03-30 06:00 | NUR ---
ASSESSMENT Pt response to tactile stimuli by withdrawing. Pt's levophed drip increased to 9mcg/min, SBP continues to drop below 90. No change in Pt's condition.
[2018-03-30] MEDS: PANTOPRAZOLE SODIUM 40 MG TAB PO SCH (06:04)
[2018-03-30] MEDS: LEVOTHYROXINE SODIUM 0.1 MG TABLET PO SCH (06:10)
--- NOTE | 2018-03-30 07:30 | NUR ---
OPENING NOTE Patient received with eyes closed, resting comfortably in bed. Patient is on mechanical ventilation with settings of AC 12, TV 500, FiO2 35%, and PEEP of 5. Patient has a right upper arm PICC with clean, dry, and intact dressing infusing 1/2 NS @ 40 cc/hr. Levophed also infusing @ 9 mcg/min. Patient has has an OGT with Pivot 1.5 @ 45 cc/hr. Patient has a bernard catheter in place. Skin is not intact with wound on sacrum and right heel. Dressings in place. HOB raised, bed at lowest position, and call light within reach.
[2018-03-30] MEDS: TOPIRAMATE 100 MG TABLET(Topamax) PO SCH ×2 (09:12→23:30)
[2018-03-30] MEDS: POTASSIUM CHLORIDE 10 MEQ TAB.PRT.SR PO SCH (09:12)
[2018-03-30] MEDS: DOCUSATE SODIUM 100 MG CAPSULE PO SCH ×2 (09:12→23:30)
[2018-03-30] MEDS: PRAMIPEXOLE DI-HCL 1 MG TABLET PO SCH ×2 (09:13→23:30)
[2018-03-30] MEDS: ASCORBIC ACID 500 MG TABLET PO SCH ×2 (09:13→23:29)
[2018-03-30] MEDS: CALCIUM CARBONATE/VITAMIN D3 1 TAB TABLET PO SCH ×2 (09:13→23:30)
[2018-03-30] MEDS: OXYBUTYNIN CHLORIDE 5 MG TABLET PO SCH ×2 (09:13→21:00)
[2018-03-30] MEDS: LACOSAMIDE 100 MG TABLET PO SCH ×2 (09:14→23:29)
[2018-03-30] MEDS: ENOXAPARIN SODIUM 40 MG/0.4 ML SYRINGE SUBCUT SCH (09:15)
--- NOTE | 2018-03-30 09:31 | NUR ---
out of town Kathryn called to inform that Dr. Xena PATRICIA is out of town.
[2018-03-30] MEDS: 0.45% NACL 1,000 ML IV SCH (10:38)
[2018-03-30] MEDS: BALSAM PERU/CASTOR OIL 60 GM OINT...G. TP SCH (10:39)
[2018-03-30] MEDS: VANCOMYCIN HCL 750 MG in NS 250 ML IV SCH ×2 (11:06→23:29)
--- NOTE | 2018-03-30 13:15 | NUR ---
CHG CHG bath provided and linen changed. Patient tolerated well. No distress noted. Will continue to monitor.
--- NOTE | 2018-03-30 13:26 | NUR ---
[facility] Gaby resource coordinator for [facility] called to inform that their MD is out of the office today, but they will be consulting the MD tomorrow and calling back then.
--- NOTE | 2018-03-30 13:30 | NUR ---
WOUND CARE Wound care performed per wound care order. Patient tolerated procedure well. Isolation precautions maintained.
--- NOTE | 2018-03-30 14:15 | NUR ---
PICC line dressing change PICC line dressing changed. Aseptic technique maintained during procedure. Patient tolerated well. No distress noted at this time.
[2018-03-30] MEDS: LORazepam 2 MG/ML VIAL IVP PRN (14:48)
--- NOTE | 2018-03-30 15:02 | NUR ---
CALLED PAGEChristel WRIGHT VIA NATE SPOKE WITH ILENE
--- NOTE | 2018-03-30 16:22 | NUR ---
CALLED PAGED DR ULRICH SPOKE WITH GUILLERMO
--- NOTE | 2018-03-30 16:57 | NUR ---
CALLED SECOND PAGED DR ULRICH, DR DICKINSON IS WELT TREATER.
--- NOTE | 2018-03-30 17:00 | NUR ---
MD Dr. Herrera called back, informed MD of pt's rhythm. MD will be in to see pt.
[2018-03-30] MEDS: MONTELUKAST 10 MG TABLET PO SCH (18:00)
--- NOTE | 2018-03-30 18:42 | NUR ---
CONSULTATION PAGED/CALLED Reason for Consultation: TRACH Person Who was Notified: SHRUTHI Consulting Physician: SANDRA MEREDITH ([phone]) Ordering Physician: VERONICA MCQUEEN
--- NOTE | 2018-03-30 19:27 | NUR ---
Closing Note Pt endorsed to Jessi FORD using SBAR. Isolations precautions observed during shift.
[2018-03-30] MEDS: CEFEPIME 1 GM in D5W 50 ML IV SCH (23:46)
[2018-03-31] VITALS (37 sets, daily range): BP systolic 81–132
[2018-03-31] MEDS: NOREPINEPHRINE BITARTRATE 4 MG in D5W 246 ML IV PRN ×3 (01:34→16:37)
[2018-03-31 05:32] LABS: BASOPHILS % (AUTO) 0.3 % (0.0-2.0); EOSINOPHILS # (AUTO) 0.1 K/uL (0.0-0.4); EOSINOPHILS % (AUTO) 1.9 % (0.0-4.0); HEMATOCRIT 32.7 % (36-54); HEMOGLOBIN 10.8 g/dL (14.0-18.0); LYMPHOCYTES # (AUTO) 0.6 K/uL (1.0-5.5); LYMPHOCYTES % (AUTO) 7.7 % (20.5-51.5); MEAN CORPUSCULAR HEMOGLOBIN 30 pg (27-31); MEAN CORPUSCULAR HGB CONC 33 % (32-36); MEAN CORPUSCULAR VOLUME 90 fL (79.0-98.0); MONOCYTES # (AUTO) 0.5 K/uL (0.0-1.0); MONOCYTES % (AUTO) 7.4 % (1.7-9.3); NEUTROPHILS % (AUTO) 82.7 % (40.0-70.0); PLATELET COUNT (AUTO) 358 K/uL (130-430); RED BLOOD CELL COUNT(AUTO) 3.63 MIL/uL (4.2-6.2); RED CELL DISTRIBUTION WIDTH 14.2 % (9.0-15.0); WHITE BLOOD COUNT (AUTO) 7.2 K/uL (4.8-10.8)
[2018-03-31 05:41] LABS: CALCIUM 8.4 mg/dL (8.4-11.0); CREATININE 0.6 mg/dL (0.55-1.30); POTASSIUM 3.9 mmol/L (3.5-5.1)
[2018-03-31] MEDS: PANTOPRAZOLE SODIUM 40 MG TAB PO SCH (06:32)
[2018-03-31] MEDS: MILK OF MAGNESIA 30 ML UDC PO PRN ×2 (06:32→22:23)
[2018-03-31] MEDS: LEVOTHYROXINE SODIUM 0.1 MG TABLET PO SCH (06:48)
--- NOTE | 2018-03-31 07:30 | NUR ---
Opening Note Received report from Jessi FORD for continuation of care via SBAR.
--- NOTE | 2018-03-31 07:45 | NUR ---
BM status Dr. Gonzalez made aware of pt not having bowel movement for 9 days and was given MOM during information engineer, Dr. Gonzalez states, "I have no concern for pt's BM at the moment." No new orders made.
--- NOTE | 2018-03-31 08:00 | NUR ---
Visitation from Mary Ann Thompson from [place] for pt. Provided with info for trach and PEG tube eval. Mary Ann states they will have a meeting with doctors to determine next plan of care and will update us. Addendum: 03/31/18 at 0831 by Fátima Biggs RN Meeting today
[2018-03-31] MEDS: OXYBUTYNIN CHLORIDE 5 MG TABLET PO SCH (09:00)
[2018-03-31] MEDS: LACOSAMIDE 100 MG TABLET PO SCH ×2 (09:17→22:15)
[2018-03-31] MEDS: POTASSIUM CHLORIDE 10 MEQ TAB.PRT.SR PO SCH (09:17)
[2018-03-31] MEDS: TOPIRAMATE 100 MG TABLET(Topamax) PO SCH ×2 (09:18→22:14)
[2018-03-31] MEDS: DOCUSATE SODIUM 100 MG CAPSULE PO SCH ×2 (09:18→22:24)
[2018-03-31] MEDS: ASCORBIC ACID 500 MG TABLET PO SCH ×2 (09:18→22:15)
[2018-03-31] MEDS: ENOXAPARIN SODIUM 40 MG/0.4 ML SYRINGE SUBCUT SCH (09:20)
[2018-03-31] MEDS: PRAMIPEXOLE DI-HCL 1 MG TABLET PO SCH ×2 (09:20→22:14)
[2018-03-31] MEDS: CEFEPIME 1 GM in D5W 50 ML IV SCH ×2 (09:21→22:15)
[2018-03-31] MEDS: CALCIUM CARBONATE/VITAMIN D3 1 TAB TABLET PO SCH ×2 (09:21→22:14)
[2018-03-31] MEDS: BALSAM PERU/CASTOR OIL 60 GM OINT...G. TP SCH (09:22)
[2018-03-31] MEDS: 0.45% NACL 1,000 ML IV SCH (10:26)
--- NOTE | 2018-03-31 10:26 | NUR ---
Social Service Note: SYBIL spoke with Mary Ann ([phone]) with the [facility]; Mary Ann states that her doctor and team have questions for the physician regarding pt's stability for any surgery and stability to be transferred to lower level of care after the surgery. SYBIL has reached out to HCP/PA case briefer (Gema Smith Cecilia) for assistance in contacting physician to place call to Mary Ann to discuss her concerns. Mary Ann is also asking for an Ethics Meeting for patient. SYBIL will initiate an Ethics Meeting with the Medical Staff Office. SYBIL will remain available for support and will follow up as needed. Addendum: 03/31/18 at 1114 by Candace Hernández LCSW Ethics Meeting referral has andrea forward to Medical Staff to arrange for Ethics Meeting.
[2018-03-31] MEDS: VANCOMYCIN HCL 750 MG in NS 250 ML IV SCH (11:24)
[2018-03-31] MEDS ORDERED: MIDODRINE HCL 2.5 MG TABLET (PROAMATINE) PO ONE (14:45)
--- NOTE | 2018-03-31 15:10 | NUR ---
WOUND RE-EVALUATION: Late note for 151 secondary to patient care. Patient received in a Lakeshia Bed with an IsoFlex BENTLEY mattress, awake, nonverbal, nonresponsive to verbal commands. Patient is unable to turn in bed independently. Damon Score is a 13. Microbiology: Blood culture results 2 negative. Urine culture results positive for Proteus mirabilis (ESBL). MRSA screen results positive. Sputum culture positive for MRSA. Intrinsic factors that delay wound healing: Cephalopathy, chronic atrial fibrillation, hypoalbuminemia. Extrinsic factors that delay wound healing: Immobility. Wound Assessment: 1. Sacral-Coccygeal area: Stage IV pressure ulcer, present on admission. Wound bed has 10% red tissue, 5% black slough, 85% yellow slough. No odor, no drainage. Periwound has dark discolored tissue on right lateral and inferior aspects of wound. Surrounding tissue has purple discoloration. Undermining present from 1-5 and 7-11 o'clock (measurements: 12 o'clock: 0.0 cm; 3 o'clock: 1.3 cm; 6 o'clock: 0.0 cm; 9 o'clock: 1.5 cm). Right upper sacral area has scar tissue, present on admission. Wound measures 5.0 cm x 4.0 cm x 1.1 cm. Recommend: Cleanse wound with normal saline. Place moisture barrier cream onto nathaly-wound. Apply Venelex ointment onto wound bed. Place two 1.6 inch TenderWet dressings into wound cavity. Cover with Sacral foam dressing. Perform wound care daily, and as needed for dressing soiling or dislodgement. 2. Sacral-Coccygeal area, right lateral aspect of wound 1: Area of non-intact skin, present on admission, with 100% red tissue. No odor, no drainage. Periwound macerated. 3. Sacral-Coccygeal area, left lateral aspect of wound 1: Area of non-intact skin, present on admission, with 100% red tissue. No odor, no drainage. Periwound macerated. Recommend continue: Cleanse wounds with normal saline. Place moisture barrier cream onto wounds and nathaly-wounds. Apply Venelex ointment onto any portion of wound beds not covered by barrier cream. Cover with Sacral foam dressing. Perform wound care daily, and as needed for dressing soiling or dislodgement. 4. Left Achilles area: Area of purple discoloration, present on admission. No odor no drainage, skin intact. Possible former sDTI site. Recommend continue: Cover site with foam dressing. Elevate, offload and float involved area one pillow lengthwise under extremity. Do not allow involved area to come in contact with pillow, bed, or other areas. Also recommend continue: Reposition patient [id number] only every 2 hours with pillow support, and off-load pressure areas with pillows for pressure re-distribution. Offload, elevate and float bilateral heels with one pillow lengthwise (Do not allow Left Achilles area to come in contact with pillow, bed, or other areas). Perform skin care and monitor skin integrity Q shift. Use moisture barrier cream on buttocks and other moisture susceptible areas QID and as needed for soiling. Maintain patient on a low air-loss mattress.
--- NOTE | 2018-03-31 15:15 | NUR ---
CHG bath given, linens changed, and wound care performed. Pt. tolerated well.
[2018-03-31] MEDS ORDERED: MIDODRINE HCL 5 MG TABLET (PROAMATINE) PO ONE (16:15)
--- NOTE | 2018-03-31 17:16 | NUR ---
Paged Dr. Gonzalez for orders, waiting for call back.
--- NOTE | 2018-03-31 17:43 | NUR ---
Dr. Gonzalez return call to unit. Updated Dr. Gonzalez regarding updates on pt's code status and decision by conservatorship. Dr. Sanchez contacted and also updated on pt's status. New orders made and carried out.
[2018-03-31] MEDS: MONTELUKAST 10 MG TABLET PO SCH (18:08)
--- NOTE | 2018-03-31 19:30 | NUR ---
Endorsed plan of care to Jessi FORD via SBAR.
--- NOTE | 2018-03-31 19:33 | NUR ---
JUSTIN ANDERSON MD, DR. HAJI. SPOKE WITH TY.
--- NOTE | 2018-03-31 19:35 | NUR ---
DR HAJI Talked to Dr HAJI, regarding trach and PEG tube placement. Dr Haji was informed no consent was signed, and it is unknown how long it will take to get the consent signed on Wednesday. Dr Haji ordered Pt to remain NPO ( no tube feeding) after midnight.
--- NOTE | 2018-03-31 20:00 | NUR ---
ASSESSMENT Pt resting quietly. Pt response to tactile stimuli by opening eyes & withdrawing. Swelling noted on upper & lower eyelid, left eye. Pt orally intubated, and tolerating current settings. PICC line present right upper arm, no redness or swelling noted. Burnett cath in use. Skin ulcers present. Low air loss mattress in use.
[2018-03-31] MEDS: MIDODRINE HCL 5 MG TABLET (PROAMATINE) PO SCH (22:14)
[2018-04-01] VITALS (31 sets, daily range): BP systolic 90–158
[2018-04-01] MEDS: NOREPINEPHRINE BITARTRATE 4 MG in D5W 246 ML IV PRN ×2 (00:29→15:56)
[2018-04-01] MEDS: VANCOMYCIN HCL 750 MG in NS 250 ML IV SCH ×3 (00:38→22:56)
[2018-04-01 06:01] LABS: CALCIUM 8.5 mg/dL (8.4-11.0); CREATININE 0.67 mg/dL (0.55-1.30); POTASSIUM 3.9 mmol/L (3.5-5.1)
--- NOTE | 2018-04-01 07:15 | NUR ---
AM ROUNDS: Report received from Jessi for continuation of care. Patient is resting comfortably in bed. No signs or symptoms of distress noted.
[2018-04-01 08:09] LABS: HEMATOCRIT 30.4 % (36-54); HEMOGLOBIN 9.8 g/dL (14.0-18.0); MEAN CORPUSCULAR HEMOGLOBIN 29 pg (27-31); MEAN CORPUSCULAR VOLUME 91 fL (79.0-98.0); RED BLOOD CELL COUNT(AUTO) 3.36 MIL/uL (4.2-6.2); WHITE BLOOD COUNT (AUTO) 6.1 K/uL (4.8-10.8)
[2018-04-01 08:10] LABS: BASOPHILS % (AUTO) 0.4 % (0.0-2.0); EOSINOPHILS # (AUTO) 0.2 K/uL (0.0-0.4); EOSINOPHILS % (AUTO) 2.5 % (0.0-4.0); LYMPHOCYTES # (AUTO) 0.6 K/uL (1.0-5.5); MEAN CORPUSCULAR HGB CONC 32 % (32-36); MONOCYTES # (AUTO) 0.4 K/uL (0.0-1.0); MONOCYTES % (AUTO) 6.9 % (1.7-9.3); NEUTROPHILS # (AUTO) 4.9 K/uL (1.8-7.7); NEUTROPHILS % (AUTO) 80.2 % (40.0-70.0); PLATELET COUNT (AUTO) 326 K/uL (130-430); RED CELL DISTRIBUTION WIDTH 14.8 % (9.0-15.0)
[2018-04-01] MEDS: CEFEPIME 1 GM in D5W 50 ML IV SCH ×2 (08:48→20:19)
[2018-04-01] MEDS: ENOXAPARIN SODIUM 40 MG/0.4 ML SYRINGE SUBCUT SCH (08:48)
[2018-04-01] MEDS: BALSAM PERU/CASTOR OIL 60 GM OINT...G. TP SCH (08:49)
--- NOTE | 2018-04-01 09:45 | NUR ---
TRANSFERRED TO OR: Via hospital bed with Dr. Uribe, RT and administrative technician.
[2018-04-01] MEDS ORDERED: fentaNYL CITRATE/PF 100 MCG/2 ML AMP IVP PRN ×2 (10:30)
--- NOTE | 2018-04-01 10:53 | NUR ---
RETURNED FROM OR: Patient returned from OR and placed on monitor. No signs or symptoms of distress noted.
[2018-04-01] MEDS: PRAMIPEXOLE DI-HCL 1 MG TABLET PO SCH ×2 (11:06→20:20)
[2018-04-01] MEDS: LEVOTHYROXINE SODIUM 0.1 MG TABLET PO SCH (11:06)
[2018-04-01] MEDS: POTASSIUM CHLORIDE 10 MEQ TAB.PRT.SR PO SCH (11:07)
[2018-04-01] MEDS: CALCIUM CARBONATE/VITAMIN D3 1 TAB TABLET PO SCH ×2 (11:07→20:20)
[2018-04-01] MEDS: DOCUSATE SODIUM 100 MG CAPSULE PO SCH ×2 (11:07→20:21)
[2018-04-01] MEDS: ASCORBIC ACID 500 MG TABLET PO SCH ×2 (11:08→20:19)
[2018-04-01] MEDS: PANTOPRAZOLE SODIUM 40 MG TAB PO SCH (11:08)
[2018-04-01] MEDS: LACOSAMIDE 100 MG TABLET PO SCH ×2 (11:08→20:19)
[2018-04-01] MEDS: MIDODRINE HCL 5 MG TABLET (PROAMATINE) PO SCH ×2 (11:09→20:21)
[2018-04-01] MEDS: TOPIRAMATE 100 MG TABLET(Topamax) PO SCH ×2 (11:09→20:20)
[2018-04-01] MEDS: 0.45% NACL 1,000 ML IV SCH (11:12)
--- NOTE | 2018-04-01 11:37 | NUR ---
RT NOTES AT 1040 PT RETURNED FROM O.R. AND CONNECTED TO VENT WITH PREVIOUS SETTINGS. PER DR. BAILEY PLACED PT ON 100% FOR 30 MIN. AT 1110 PT BACK TO 35% FIO2, KEEP SPO2 ABOVE 90%. TOLERATING WELL. LOGAN CAGLE MADE AWARE. PLACED A NEW TRACHEOSTOMY TUBE(PORTEX SIZE8) AT BEDSIDE. WILL CONTINUE MONITORING.
--- NOTE | 2018-04-01 16:58 | NUR ---
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 Plans to start TF via GT tomorrow, 0700 per MD notes. RN aware. RD to input TF order via EMR per MD. RN stated that pt has been receiving ongoing water flushes, Per EMR, TF Intakes: 90 ml 04/01/18. Residuals: 0 ml 03/31/18. I/O: 354/470 (-166 ml) per 12 hours. Pt is not yet meeting optimal nutritional needs. Current Diet Order/Nutrition Support NPO x0 days Patient/Significant Other Unable To Verbalize Education Provided Not Indicated Pertinent Medications k-dur, synthroid, colace, os-jeanine, VIT C, protonix, vancomycin/NaCl IV, lovenox, MOM Pertinent Labs BG 98 WNL (improved), ALB 2.2 L (03/26/19), RBC 3.36 L, H/H 9.8 L/30.4 L Height (Feet) 6 feet Height (Inches) 0.00 inches Weight (Pounds) 130 pounds (03/19/18) -- BEDSCALE WT: 138 lb (04/01/18) Weight (Calculated Kilograms) 58.911893 kilograms Patient Weight 58.967 kg Body Mass Index 17.63 kg/m2 %IBW 73 [place]/Adjusted Body Weight IBW: 178 lb, 81 kg Weight Status Underweight Gastrointestinal Symptoms None Difficulty With: Chewing Swallowing Food Allergies unable to verify Usual Diet At Home Pureed honey thick liquids per EMR Skin Integrity Comment: Damon scale: 13; Per Die Repairer Forging note (03/31/18): 1. Sacral-Coccygeal area: Stage IV pressure ulcer, present on admission. 2. Sacral-Coccygeal area, right lateral aspect: Multiple areas of non-intact skin, present on admission. 3. Sacral-Coccygeal area, left lateral aspect: Multiple areas of non-intact skin, present on admission. 4. Left Achilles area: Area of purple discoloration, present on admission. Bilateral ankle w/ 1+ pitting edema and L periorbial w/ non-pitting edema Current % PO N/A on EN support Estimated Energy Expenditure (kcals/day) 1597 kcal/day (PSU 2003b MSJ CBW for critical illness/vent support) Estimated Protein Required (g/day) 97-122 gm/day (1.2-1.5 gm/kg IBW for wt gain, wounds) Estimated Fluid Required (l/day) 1.8 L/day (30 ml/kg CBW for geriatric maintenance) Problem/Etiology/Signs/Symptoms Chewing/swallowing difficulty related to cognitive limitations as evidenced by lethargy and inability to take PO diet at lunch. *ongoing Expected Outcomes/Goals - Monitor tolerance to EN support and intake w/ goal of pt meeting at least 50% of estimated nutritional needs, labs trending WNL, normal GI function, and skin integrity/wt maintenance Dietitian Recommendations * Recommend Pivot 1.5 at 45 ml/hr, Free Water Flush: 250 ml Q6h via GT Provides: 1620 kcal/day, 101 gm protein/day, and 1820 ml free water/day Meets: 99% of estimated caloric needs and 83% of upper end of estimated protein needs Follow Up High Risk: F/U in 2-3 days
--- NOTE | 2018-04-01 17:07 | NUR ---
Dietitian Recommendations * Recommend Pivot 1.5 at 45 ml/hr, Free Water Flush: 250 ml Q6h via GT Provides: 1620 kcal/day, 101 gm protein/day, and 1820 ml free water/day Meets: 99% of estimated caloric needs and 83% of upper end of estimated protein needs LP, RD Please refer to Nutrition F/U for details.
[2018-04-01] MEDS: MONTELUKAST 10 MG TABLET PO SCH (17:15)
--- NOTE | 2018-04-01 19:00 | NUR ---
REPORT: Given to Jacqui for continuation of care. Patient is resting in bed comfortably. No signs or symptoms of distress noted.
--- NOTE | 2018-04-01 19:05 | NUR ---
Opening Note: Pt VSS. Pt trach to vent, Portex size 8. Vent settings: AC 12, TV 500, FIO2 35%, PEEP 5, saturating @ 99%. CARMELA Picc line infusing Levophed @ 4mcg/min, 1/2 NS @ 40mls/hr. Gtube clamped. Pt on bernard, yellow colored urine draining to gravity. Bilateral soft wrist restraints noted, skin intact. Seizure precautions in place. Bed locked, in lowest position. HOB elevated. No distress noted. Will continue to monitor.
--- NOTE | 2018-04-01 22:10 | NUR ---
RN Notes Patient VSS. IVF infusing well. Levophed infusing @ 4mcg/min. Gtube clamped. No SOB or distress noted. Pt turned and repositioned for comfort. Soft bilateral wrist restraints in place. Burnett patent, draining to gravity. Will continue to monitor.
[2018-04-02] VITALS (29 sets, daily range): BP systolic 86–143
--- NOTE | 2018-04-02 | NUR ---
RN Notes Patient VSS. IVF infusing well. Levophed @ 4mcg/min. Pt turned and repositioned. Oral and nathaly care done. No distress noted. Will continue to monitor.
--- NOTE | 2018-04-02 04:15 | NUR ---
RN Notes Pt VSS. IVF infusing well. Pt had 1 x loose bowel movement, pt cleaned. Emma and bernard care done. Pt tolerated care well.
[2018-04-02] MEDS: LEVOTHYROXINE SODIUM 0.1 MG TABLET PO SCH (06:20)
[2018-04-02 06:46] LABS: CALCIUM 8.6 mg/dL (8.4-11.0); POTASSIUM 3.7 mmol/L (3.5-5.1)
[2018-04-02 06:47] LABS: CREATININE 0.63 mg/dL (0.55-1.30)
[2018-04-02] MEDS: PANTOPRAZOLE SODIUM 40 MG TAB PO SCH (06:50)
[2018-04-02 06:55] LABS: RED BLOOD CELL COUNT(AUTO) 3.39 MIL/uL (4.2-6.2); WHITE BLOOD COUNT (AUTO) 6.5 K/uL (4.8-10.8)
[2018-04-02 06:56] LABS: BASOPHILS % (AUTO) 0.7 % (0.0-2.0); EOSINOPHILS % (AUTO) 2.5 % (0.0-4.0); HEMATOCRIT 30.5 % (36-54); HEMOGLOBIN 9.9 g/dL (14.0-18.0); LYMPHOCYTES % (AUTO) 4.8 % (20.5-51.5); MEAN CORPUSCULAR HEMOGLOBIN 29 pg (27-31); MEAN CORPUSCULAR HGB CONC 33 % (32-36); MEAN CORPUSCULAR VOLUME 90 fL (79.0-98.0); MONOCYTES % (AUTO) 3.4 % (1.7-9.3); NEUTROPHILS # (AUTO) 5.8 K/uL (1.8-7.7); NEUTROPHILS % (AUTO) 88.6 % (40.0-70.0); PLATELET COUNT (AUTO) 290 K/uL (130-430); RED CELL DISTRIBUTION WIDTH 14.5 % (9.0-15.0)
[2018-04-02 06:57] LABS: EOSINOPHILS # (AUTO) 0.2 K/uL (0.0-0.4); LYMPHOCYTES # (AUTO) 0.3 K/uL (1.0-5.5); MONOCYTES # (AUTO) 0.2 K/uL (0.0-1.0)
--- NOTE | 2018-04-02 07:10 | NUR ---
Closing Note Pt VSS. No sign of distress or discomfort noted. Report given to Helen FORD.
[2018-04-02 07:19] LABS: POTASSIUM 3.9 mmol/L (3.5-5.1)
[2018-04-02 07:20] LABS: CALCIUM 8.3 mg/dL (8.4-10.2); CREATININE 0.52 mg/dL (0.55-1.30)
--- NOTE | 2018-04-02 07:50 | NUR ---
OPENING NOTE Patient received sleeping comfortably in bed. Patient is trach to vent with settings of AC 12, tidal volume 500, FiO2 35%, and PEEP of 5. Patient is 100% paced with dual chamber pacemaker. Patient has a right upper PICC line infusing 1/2 NS @ 40 ml/hr. Levophed also infusing @ 4mcg/min. Patient has a g-tube in place. Patient has a bernard catheter draining clear, yellow urine. Skin is non-intact. Dressings are in place. Ensured bed is at lowest position, HOB elevated > 30, and call light in reach.
--- NOTE | 2018-04-02 08:00 | NUR ---
Feeding Patient started back on Pivot 1.5 @ 45 ml/hr.
--- NOTE | 2018-04-02 08:00 | NUR ---
Vent settings Patient changed from AC to SIMV 8 with pressure support 10.
[2018-04-02] MEDS: NOREPINEPHRINE BITARTRATE 4 MG in D5W 246 ML IV PRN ×2 (08:27→19:53)
[2018-04-02] MEDS: LACOSAMIDE 100 MG TABLET PO SCH ×2 (08:49→20:40)
[2018-04-02] MEDS: CEFEPIME 1 GM in D5W 50 ML IV SCH ×2 (08:49→20:42)
[2018-04-02] MEDS: POTASSIUM CHLORIDE 10 MEQ TAB.PRT.SR PO SCH (08:49)
[2018-04-02] MEDS: ASCORBIC ACID 500 MG TABLET PO SCH ×2 (08:49→20:40)
[2018-04-02] MEDS: DOCUSATE SODIUM 100 MG CAPSULE PO SCH ×2 (08:49→20:42)
[2018-04-02] MEDS: CALCIUM CARBONATE/VITAMIN D3 1 TAB TABLET PO SCH ×2 (08:50→20:40)
[2018-04-02] MEDS: MIDODRINE HCL 5 MG TABLET (PROAMATINE) PO SCH ×2 (08:50→20:41)
[2018-04-02] MEDS: PRAMIPEXOLE DI-HCL 1 MG TABLET PO SCH ×2 (08:50→20:42)
[2018-04-02] MEDS: ENOXAPARIN SODIUM 40 MG/0.4 ML SYRINGE SUBCUT SCH (08:51)
[2018-04-02] MEDS: BALSAM PERU/CASTOR OIL 60 GM OINT...G. TP SCH (08:51)
[2018-04-02] MEDS: TOPIRAMATE 100 MG TABLET(Topamax) PO SCH ×2 (09:08→20:41)
[2018-04-02] MEDS: 0.45% NACL 1,000 ML IV SCH (09:13)
--- NOTE | 2018-04-02 10:00 | NUR ---
Wound care Wound care performed as ordered. New dressing applied. Patient tolerated procedure well.
--- NOTE | 2018-04-02 10:35 | NUR ---
1030 pt placed on cpap5 ps 10. Addendum: 04/02/18 at 1036 by Brenna Harley RT Amended: Links added.
[2018-04-02] MEDS ORDERED: NS 1000 ML IV.SOLN IV ONE (10:45)
[2018-04-02] MEDS ORDERED: ROCURONIUM BROMIDE 10 MG/ML (ZEMURON) ONE (10:45)
[2018-04-02] MEDS ORDERED: MIDAZOLAM HCL 5 MG/ML VIAL (VERSED) IV ONE (10:45)
[2018-04-02] MEDS ORDERED: NS IRRIG SOLN 1000 ML IR ONE (10:45)
[2018-04-02] MEDS ORDERED: SEVOFLURANE 15 MIN GAS INH ONE (10:45)
--- NOTE | 2018-04-02 10:50 | NUR ---
CHG CHG bath provided and linen changed. Patient tolerated well. No signs of distress noted. Addendum: 04/02/18 at 1222 by Ines Kinsey RN CHG performed @ 4097.
--- NOTE | 2018-04-02 14:20 | NUR ---
Visitors Pt has two friends at bedside. Will continue to monitor.
--- NOTE | 2018-04-02 16:00 | NUR ---
RN ROUNDS Patient resting comfortably in bed. HOB raised > 30 degrees, bed at lowest position, and call light in reach. No distress noted.
--- NOTE | 2018-04-02 16:07 | NUR ---
1510 PT PLACED ON COOL AEROSOL .35 SAT 100% RR 9 HR70 Addendum: 04/02/18 at 1615 by Brenna Harley RT Amended: Links added.
[2018-04-02] MEDS: MONTELUKAST 10 MG TABLET PO SCH (17:59)
[2018-04-02] MEDS: VANCOMYCIN HCL 1,500 MG in NS 250 ML IV SCH (17:59)
--- NOTE | 2018-04-02 19:05 | NUR ---
Closing Note Endorsed patient to Ankit RN using SBAR format.
--- NOTE | 2018-04-02 19:30 | NUR ---
PM ASSESSMENT Report received from Ines RN and Helen RN using SBAR format. Pt received in bed w/ eyes closed resting comfortably. No signs of acute distress or discomfort noted. VSS w/ 100% Paced seen on the monitor. Pt on 8L of O2 via T-Collar w/ cool mist aerosol tolerating well w/ even and unlabored breathing and O2 sats @ 100%. Pt has a CARMELA picc c/d/i infusing 1/2 NS @ 40 cc/hr and Levophed @ 5 mcg/min. Pt has a gtube c/d/i infusing tubefeeding Pivot 1.5 @ 45 cc/hr. Burnett cath noted draining urine to gravity. HOB elevated, bed is locked and in lowest position, call light w/in reach, will continue to monitor.
--- NOTE | 2018-04-02 22:30 | NUR ---
RN ROUNDS Pt in bed w/ eyes closed resting comfortably. No signs of acute distress or discomfort noted. Pt had a bowel movement at this time and soiled their sacral wound dressing. Emma care and bernard cath care was performed as well as a dressing change. Pt tolerated well. HOB elevated, bed is locked and in lowest position, call light w/in reach, will continue to monitor.
[2018-04-03] VITALS (25 sets, daily range): BP systolic 88–135
--- NOTE | 2018-04-03 03:05 | NUR ---
RN ROUNDS Pt resting comfortably in bed w/ eyes closed. No signs of acute distress or discomfort noted. Pt's CARMELA picc still infusing Levophed, tolerating well w/ BP @ 120/70 on 4 mcg/min. Bed is locked and in lowest position, call light w/in reach, will continue to monitor.
[2018-04-03] MEDS: PANTOPRAZOLE SODIUM 40 MG TAB PO SCH (06:37)
[2018-04-03] MEDS: LEVOTHYROXINE SODIUM 0.1 MG TABLET PO SCH (06:37)
--- NOTE | 2018-04-03 07:09 | NUR ---
ENDORSEMENT Report given to Helen FORD and Ines RN using SBAR format and pt care endorsed. No signs of acute distress or discomfort noted. Bed is locked and in lowest position, call light w/in reach.
--- NOTE | 2018-04-03 07:15 | NUR ---
OPENING NOTE Patient received sleeping in bed. Patient has a trach and is currently on a T-Collar with 8L of O2, FiO2 40%. Patient is 100% paced. Patient has a right upper PICC line infusing 1/2 NS @ 40 ml/hr. Levophed also infusing @ 3mcg/min. Patient has a g-tube with Pivot 1.5 @ 45 ml/hr. Patient has a bernard catheter in place draining yellow urine. Patient skin is non-intact with dressings in place on sacrum and right heel. Dressings are dry and clean. HOB raised > 30 degrees, bed at lowest position, and call light in reach.
[2018-04-03] MEDS: CEFEPIME 1 GM in D5W 50 ML IV SCH ×2 (08:54→20:27)
[2018-04-03] MEDS: PRAMIPEXOLE DI-HCL 1 MG TABLET PO SCH ×2 (08:55→20:28)
[2018-04-03] MEDS: MIDODRINE HCL 5 MG TABLET (PROAMATINE) PO SCH ×2 (08:56→20:28)
[2018-04-03] MEDS: CALCIUM CARBONATE/VITAMIN D3 1 TAB TABLET PO SCH ×2 (08:56→20:28)
[2018-04-03] MEDS: ASCORBIC ACID 500 MG TABLET PO SCH ×2 (08:57→20:28)
[2018-04-03] MEDS: DOCUSATE SODIUM 100 MG CAPSULE PO SCH ×2 (08:57→20:28)
[2018-04-03] MEDS: TOPIRAMATE 100 MG TABLET(Topamax) PO SCH ×2 (08:58→20:28)
[2018-04-03] MEDS: POTASSIUM CHLORIDE 10 MEQ TAB.PRT.SR PO SCH (08:58)
[2018-04-03] MEDS: LACOSAMIDE 100 MG TABLET PO SCH ×2 (08:58→20:28)
[2018-04-03] MEDS: ENOXAPARIN SODIUM 40 MG/0.4 ML SYRINGE SUBCUT SCH (08:59)
[2018-04-03 09:04] LABS: CALCIUM 8.1 mg/dL (8.4-11.0); CREATININE 0.55 mg/dL (0.55-1.30); POTASSIUM 3.6 mmol/L (3.5-5.1); TOTAL BILIRUBIN 0.4 mg/dL (0.0-1.0)
[2018-04-03] MEDS: BALSAM PERU/CASTOR OIL 60 GM OINT...G. TP SCH (09:29)
[2018-04-03 09:44] LABS: EOSINOPHILS % (AUTO) 2.5 % (0.0-4.0); HEMATOCRIT 29.4 % (36-54); HEMOGLOBIN 9.8 g/dL (14.0-18.0); LYMPHOCYTES % (AUTO) 7.1 % (20.5-51.5); MEAN CORPUSCULAR HEMOGLOBIN 30 pg (27-31); MEAN CORPUSCULAR HGB CONC 33 % (32-36); MEAN CORPUSCULAR VOLUME 90 fL (79.0-98.0); PLATELET COUNT (AUTO) 261 K/uL (130-430); RED BLOOD CELL COUNT(AUTO) 3.26 MIL/uL (4.2-6.2); RED CELL DISTRIBUTION WIDTH 15.2 % (9.0-15.0); WHITE BLOOD COUNT (AUTO) 6.1 K/uL (4.8-10.8)
[2018-04-03 09:45] LABS: BASOPHILS % (AUTO) 0.8 % (0.0-2.0); EOSINOPHILS # (AUTO) 0.2 K/uL (0.0-0.4); LYMPHOCYTES # (AUTO) 0.4 K/uL (1.0-5.5); MONOCYTES # (AUTO) 0.3 K/uL (0.0-1.0); NEUTROPHILS # (AUTO) 5.2 K/uL (1.8-7.7)
[2018-04-03] MEDS: 0.45% NACL 1,000 ML IV SCH (09:55)
--- NOTE | 2018-04-03 11:40 | NUR ---
RN Rounds RT at bedside. Performed deep tracheal suction producing thick secretions. Patient's oxygen saturation remained between 95%-100% during procedure. No distress noted.
[2018-04-03 12:33] LABS: NEUTROPHILS % (AUTO) 84.6 % (40.0-70.0)
--- NOTE | 2018-04-03 14:00 | NUR ---
CHG CHG bath given and linen changed. Patient tolerated well. No distress noted. Will continue to monitor.
--- NOTE | 2018-04-03 14:15 | NUR ---
Wound Care Performed wound care as ordered. Patient tolerated well. Will continue to monitor. Call light in reach.
[2018-04-03] MEDS ORDERED: NOREPINEPHRINE 4 MG/4 ML VIAL IV ONE (17:15)
[2018-04-03] MEDS: NOREPINEPHRINE BITARTRATE 4 MG in D5W 246 ML IV PRN (17:21)
[2018-04-03] MEDS: VANCOMYCIN HCL 1,500 MG in NS 250 ML IV SCH (17:30)
[2018-04-03] MEDS: MONTELUKAST 10 MG TABLET PO SCH (17:30)
--- NOTE | 2018-04-03 19:21 | NUR ---
ENDORSEMENT Endorsed patient to Randa ZIMMERMAN using SBAR format. No distress noted at this time.
--- NOTE | 2018-04-03 19:30 | NUR ---
PM ASSESSMENT REPORT RECEIVED FROM LINSEY FORD. PT RECEIVED IN BED WITH EYES CLOSED, RESPONDING TO TACTILE STIMULATION. PT ON TRACH TO T-COLLAR WITH COOL MIST AREOSOL @ 8L. 100% PACED ON MONITOR. CARMELA PICC IN PLACE INFUSING 1/2 NS @ 40 CC/HR AND LEVOPHED DRIP @ 3 MCG/MIN. G-TUBE IN PLACE RUNNING PIVOT TUBEFEEDING @ 45 CC/HR. MACKAY CATH IN PLACE DRAINING CLEAR YELLOW URINE TO GRAVITY. CONTACT PRECAUTIONS IN PLACE. HOB ELEVATED, BED IN LOWEST POSITION, CALL LIGHT IN REACH. WILL CONTINUE TO MONITOR.
--- NOTE | 2018-04-03 22:50 | NUR ---
BM PT HAD SMALL SMEAR OF A BM AT THIS TIME. FERMÍN CARE DONE AND LINENS CHANGED. PT TOLERATED WELL. WILL CONTINUE TO MONITOR PT.
[2018-04-04] VITALS (24 sets, daily range): BP systolic 79–115
--- NOTE | 2018-04-04 02:00 | NUR ---
RN ROUNDS PT RESTING COMFORTABLY IN BED WITH EYES CLOSED. BREATHING IS EVEN AND UNLABORED ON T-COLLAR. VSS, NO S/S OF ACUTE DISTRESS NOTED. WILL CONTINUE TO MONITOR PT.
[2018-04-04] MEDS: PANTOPRAZOLE SODIUM 40 MG TAB PO SCH (06:30)
[2018-04-04] MEDS: LEVOTHYROXINE SODIUM 0.1 MG TABLET PO SCH (06:30)
--- NOTE | 2018-04-04 07:51 | NUR ---
AM NOTES PT IN BED, NON VERBAL. HAS TRACH CONNECTED TO T-BAR AT 8L TOLERATED WELL. IVF INFUSING WELL ON RIGHT UPPER ARM PICC LINE. OFF TO LEVOPHED, WILL CONTINUE TO MONITOR. REPOSITIONED TO HIGH FOWLERS POSITION. MAINTAIN ON CONTACT AND ASPIRATION PRECAUTION. NO ACUTE DISTRESS NOTED AT THIS TIME. AFEBRILE. WILL MONITOR.
[2018-04-04 07:56] LABS: HEMATOCRIT 29.4 % (36-54); HEMOGLOBIN 9.4 g/dL (14.0-18.0); RED BLOOD CELL COUNT(AUTO) 3.25 MIL/uL (4.2-6.2); WHITE BLOOD COUNT (AUTO) 6.9 K/uL (4.8-10.8)
[2018-04-04 07:57] LABS: BASOPHILS % (AUTO) 0.3 % (0.0-2.0); EOSINOPHILS % (AUTO) 2.2 % (0.0-4.0); LYMPHOCYTES % (AUTO) 4.8 % (20.5-51.5); MEAN CORPUSCULAR HEMOGLOBIN 29 pg (27-31); MEAN CORPUSCULAR HGB CONC 32 % (32-36); MEAN CORPUSCULAR VOLUME 91 fL (79.0-98.0); MONOCYTES % (AUTO) 4.6 % (1.7-9.3); NEUTROPHILS % (AUTO) 88.1 % (40.0-70.0); PLATELET COUNT (AUTO) 240 K/uL (130-430)
[2018-04-04 07:58] LABS: EOSINOPHILS # (AUTO) 0.2 K/uL (0.0-0.4); LYMPHOCYTES # (AUTO) 0.3 K/uL (1.0-5.5); MONOCYTES # (AUTO) 0.3 K/uL (0.0-1.0); NEUTROPHILS # (AUTO) 6.1 K/uL (1.8-7.7)
[2018-04-04 08:25] LABS: ALBUMIN 1.9 g/dL (3.4-4.8); CALCIUM 8.3 mg/dL (8.4-11.0); CREATININE 0.52 mg/dL (0.55-1.30); POTASSIUM 3.3 mmol/L (3.5-5.1); TOTAL BILIRUBIN 0.2 mg/dL (0.0-1.0)
[2018-04-04] MEDS: CEFEPIME 1 GM in D5W 50 ML IV SCH ×2 (09:06→21:29)
[2018-04-04] MEDS: ENOXAPARIN SODIUM 40 MG/0.4 ML SYRINGE SUBCUT SCH (09:07)
[2018-04-04] MEDS: MIDODRINE HCL 5 MG TABLET (PROAMATINE) PO SCH ×2 (09:08→21:30)
[2018-04-04] MEDS: LACOSAMIDE 100 MG TABLET PO SCH ×2 (09:08→21:29)
[2018-04-04] MEDS: POTASSIUM CHLORIDE 10 MEQ TAB.PRT.SR PO SCH (09:08)
[2018-04-04] MEDS: ASCORBIC ACID 500 MG TABLET PO SCH ×2 (09:08→21:29)
[2018-04-04] MEDS: CALCIUM CARBONATE/VITAMIN D3 1 TAB TABLET PO SCH ×2 (09:08→21:30)
[2018-04-04] MEDS: DOCUSATE SODIUM 100 MG CAPSULE PO SCH ×2 (09:08→21:30)
[2018-04-04] MEDS: PRAMIPEXOLE DI-HCL 1 MG TABLET PO SCH ×2 (09:08→21:30)
[2018-04-04] MEDS: BALSAM PERU/CASTOR OIL 60 GM OINT...G. TP SCH (09:12)
--- NOTE | 2018-04-04 09:37 | NUR ---
Notes In bed, no distress noted. tube feeding residual is 5cc ml. mouth care done. repositioned for comfort.
[2018-04-04] MEDS: 0.45% NACL 1,000 ML IV SCH ×2 (09:45→13:28)
--- NOTE | 2018-04-04 10:15 | NUR ---
levophed- B/P went down to 79/48, levophed re started at 2mcg/min, verified with 2nd RN. will continue to monitor.
--- NOTE | 2018-04-04 10:30 | NUR ---
CHG bath given.
--- NOTE | 2018-04-04 10:49 | NUR ---
wound care- sacral wound/ cleaned with NS, applied venelex ointment and tender wet 1.6 and covered with foam dressing.
[2018-04-04] MEDS ORDERED: POTASSIUM CHLORIDE 20 MEQ/PKT PACKET GT ONE (11:00)
[2018-04-04] MEDS: TOPIRAMATE 100 MG TABLET(Topamax) PO SCH ×2 (11:32→21:30)
--- NOTE | 2018-04-04 11:42 | NUR ---
RT NOTES TITRATED FIO2 DOWN TO 28% COOL AEROSOL. LOGAN ARELLANO MADE AWARE. PT TOLERATING WELL. NO RESPIRATORY DISTRESS NOTED. WILL CONTINUE MONITORING.
--- NOTE | 2018-04-04 12:05 | NUR ---
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 POD #3, s/p trach/PEG placement. Pt has been downgraded from CPAP to T-collar. Per EMR, abd is soft and non-distended w/ active bowel sounds. I/O: 1141/1990 -849ml, IV total intake 480ml. TF intake 1035ml per 24 hrs . Last BM 04/04/18 x1. Per MD notes/plans, to check frequent gastric residuals and also fo slowly w/ the tube feeding as the x-ray reveals post-operative ILEUS. Pt is for transfer to [facility]. RN reported pt is tolerating TF well w/ 5ml residual this morning. RD obtained wt w/ bedscale: 143.3 lb (04/04/18). Current TF remains adequate and appropriate. Current Diet Order/Nutrition Support Pivot 1.5 at 45ml/hr, FWF 250ml Q6H via GT x 2 days Patient/Significant Other Unable To Verbalize Education Provided Not Indicated Pertinent Medications k-dur, synthroid, colace, os-jeanine, VIT C, protonix, vancomycin/NaCl IV, lovenox, MOM, zofran Pertinent Labs (04/04/18) BG 123 H, CRE .52 L, ALB 1.9 L, RBC 3.25 L, H/H 9.4 L/29.4 L Height (Feet) 6 feet Height (Inches) 0.00 inches Weight (Pounds) 130 pounds (03/19/18) -- BEDSCALE WT: 138 lb (04/01/18); 143.4 lb (04/04/18) Weight (Calculated Kilograms) 58.724750 kilograms Patient Weight 58.967 kg Body Mass Index 17.63 kg/m2 %IBW 73 [place]/Adjusted Body Weight IBW: 178 lb, 81 kg Weight Status Underweight Gastrointestinal Symptoms None Difficulty With: Chewing Swallowing Food Allergies unable to verify Usual Diet At Home Pureed honey thick liquids per EMR Skin Integrity Comment: Damon scale: 13; Per Primary Care Nurse note (03/31/18): 1. Sacral-Coccygeal area: Stage IV pressure ulcer, present on admission. 2. Sacral-Coccygeal area, right lateral aspect: Multiple areas of non-intact skin, present on admission. 3. Sacral-Coccygeal area, left lateral aspect: Multiple areas of non-intact skin, present on admission. 4. Left Achilles area: Area of purple discoloration, present on admission. Bilateral ankle w/ 1+ pitting edema and L periorbital w/ non-pitting edema Current % PO N/A on EN support NEW Estimated Energy Expenditure (kcals/day) 7060-2069 kcal/day (30-35 kcal/kg CBW for wt gain promotion, wound healing) Estimated Protein Required (g/day) 97-122 gm/day (1.2-1.5 gm/kg IBW for wt gain, wounds) Estimated Fluid Required (l/day) 1.8 L/day (30 ml/kg CBW for geriatric maintenance) Problem/Etiology/Signs/Symptoms Chewing/swallowing difficulty related to cognitive limitations as evidenced by lethargy and inability to take PO diet at lunch. *ongoing Expected Outcomes/Goals - Monitor tolerance to EN support and intake w/ goal of pt meeting at least 75% of estimated nutritional needs, labs trending WNL, normal GI function, and skin integrity/wt maintenance Dietitian Recommendations * Recommend continuing Pivot 1.5 at 45 ml/hr, Free Water Flush: 250 ml Q6h via GT Provides: 1620 kcal/day, 101 gm protein/day, and 1820 ml free water/day Meets: 92% of estimated caloric needs and 83% of upper end of estimated protein needs Follow Up High Risk: F/U in 2-3 days
--- NOTE | 2018-04-04 12:14 | NUR ---
Dietitian Recommendations * Recommend Pivot 1.5 at 45 ml/hr, Free Water Flush: 250 ml Q6h via GT Provides: 1620 kcal/day, 101 gm protein/day, and 1820 ml free water/day Meets: 92% of estimated caloric needs and 83% of upper end of estimated protein needs. Please see Nutrition F/U note for details. PENITENTIARY, RD
--- NOTE | 2018-04-04 12:37 | NUR ---
Notes- turn and repositioned. No distress noted. Tolerating current 0xygen at 28%. tracheal and mouth sunctioning done as needed. Oral care done.
--- NOTE | 2018-04-04 15:26 | NUR ---
Notes tracheal sunctioning done and oral care done. repositioned for comfort. no acute distress noted.
[2018-04-04] MEDS: NOREPINEPHRINE BITARTRATE 4 MG in D5W 246 ML IV PRN (16:36)
[2018-04-04] MEDS: MONTELUKAST 10 MG TABLET PO SCH (17:29)
[2018-04-04] MEDS: VANCOMYCIN HCL 1,500 MG in NS 250 ML IV SCH (17:31)
--- NOTE | 2018-04-04 18:34 | NUR ---
Notes In bed, resting. vancomycin infusing at this time. tolerating current oxygen, on levophed at 2mcg/min. no distress noted.
--- NOTE | 2018-04-04 19:30 | NUR ---
PM SHIFT ASSESSMENT Pt is awake, non-verbal. Pacing with AFIB on the monitor. SPO2 via T-collar, SPO2 above 96%. Multiple skin issues noted. PICC to CARMELA with IVF infusing, no signs of infiltration noted. Gtube noted with tubefeeding infusing, pt tolerating well. Burnett catheter noted and draining to gravity. Safety precautions in place, call light within reach. Will continue to monitor.
[2018-04-05] VITALS (24 sets, daily range): BP systolic 85–111
--- NOTE | 2018-04-05 02:15 | NUR ---
Pt resting in bed. VSS. No signs of SOB or acute distress noted. Will continue to monitor.
[2018-04-05] MEDS: LEVOTHYROXINE SODIUM 0.1 MG TABLET PO SCH (06:29)
--- NOTE | 2018-04-05 07:15 | NUR ---
ENDORSEMENT Pt care endorsed to LOGAN Leigh at bedside using nursing SBAR.
--- NOTE | 2018-04-05 07:15 | NUR ---
OPENING NOTE: Received SBAR report and plan of care from night RN
[2018-04-05] MEDS: CEFEPIME 1 GM in D5W 50 ML IV SCH ×2 (08:15→21:32)
[2018-04-05] MEDS: CALCIUM CARBONATE/VITAMIN D3 1 TAB TABLET PO SCH ×2 (08:17→21:32)
[2018-04-05] MEDS: POTASSIUM CHLORIDE 10 MEQ TAB.PRT.SR PO SCH (08:17)
[2018-04-05] MEDS: LACOSAMIDE 100 MG TABLET PO SCH ×2 (08:17→21:32)
[2018-04-05] MEDS: TOPIRAMATE 100 MG TABLET(Topamax) PO SCH ×2 (08:17→21:32)
[2018-04-05] MEDS: DOCUSATE SODIUM 100 MG CAPSULE PO SCH ×2 (08:17→21:32)
[2018-04-05] MEDS: ASCORBIC ACID 500 MG TABLET PO SCH ×2 (08:17→21:32)
[2018-04-05] MEDS: PRAMIPEXOLE DI-HCL 1 MG TABLET PO SCH ×2 (08:17→21:32)
[2018-04-05] MEDS: MIDODRINE HCL 5 MG TABLET (PROAMATINE) PO SCH ×2 (08:17→21:32)
[2018-04-05] MEDS: PANTOPRAZOLE SODIUM 40 MG TAB PO SCH (08:18)
[2018-04-05] MEDS: ENOXAPARIN SODIUM 40 MG/0.4 ML SYRINGE SUBCUT SCH (08:33)
[2018-04-05] MEDS: BALSAM PERU/CASTOR OIL 60 GM OINT...G. TP SCH (09:00)
--- NOTE | 2018-04-05 14:00 | NUR ---
CHG/WOUND CARE: Performed wound care per wound care guidelines, performed CHG bath, linens changed, patient tolerated well
[2018-04-05] MEDS: 0.45% NACL 1,000 ML IV SCH (14:51)
--- NOTE | 2018-04-05 17:10 | NUR ---
ORAL CARE: Tosin 24 hour oral care kits out of stock, did not use this shift
[2018-04-05] MEDS: VANCOMYCIN HCL 1,500 MG in NS 250 ML IV SCH (17:30)
[2018-04-05] MEDS: MONTELUKAST 10 MG TABLET PO SCH (18:03)
--- NOTE | 2018-04-05 19:19 | NUR ---
CLOSING NOTE: Gave SBAR report and endorsed plan of care to night RN
--- NOTE | 2018-04-05 19:45 | NUR ---
PM Assessment Pt in bed awake, non verbal. O2 via T-collar. Pt has Trach, Portex 8. Pacemaker in place, with A-fib shown on monitor. NO s/s of distress or discomfort. Burnett catheter in place draining yellow urine to gravity. Pt has G-tube, tolerating feeding well. No residual noted. CARMELA PICC line in use. Flushed with NS and blood return present. No s/s of infiltration. Skin not intact. Pt turned and on offloaded surfaces. Bed locked in lowest position, safety precautions in place, and call light in reach. Will continue to monitor.
[2018-04-06] VITALS (25 sets, daily range): BP systolic 88–126
--- NOTE | 2018-04-06 01:00 | NUR ---
RN Rounds Pt asleep in bed. No s/s of distress or discomfort noted. Will continue to monitor
--- NOTE | 2018-04-06 05:00 | NUR ---
RN Rounds Pt remains asleep in bed. Levophed was turned off at 0330. Pt tolerating well. No s/s of distress or discomfort noted. Will continue to monitor
[2018-04-06] MEDS: LEVOTHYROXINE SODIUM 0.1 MG TABLET PO SCH (06:33)
[2018-04-06] MEDS: PANTOPRAZOLE SODIUM 40 MG TAB PO SCH (06:33)
--- NOTE | 2018-04-06 07:15 | NUR ---
OPENING NOTE: Received SBAR report and plan of care from night RN
[2018-04-06] MEDS: TOPIRAMATE 100 MG TABLET(Topamax) PO SCH ×2 (08:19→21:41)
[2018-04-06] MEDS: CEFEPIME 1 GM in D5W 50 ML IV SCH (08:19)
[2018-04-06] MEDS: CALCIUM CARBONATE/VITAMIN D3 1 TAB TABLET PO SCH ×2 (08:19→21:40)
[2018-04-06] MEDS: ASCORBIC ACID 500 MG TABLET PO SCH ×2 (08:20→21:40)
[2018-04-06] MEDS: LACOSAMIDE 100 MG TABLET PO SCH ×2 (08:20→21:41)
[2018-04-06] MEDS: DOCUSATE SODIUM 100 MG CAPSULE PO SCH ×2 (08:20→21:40)
[2018-04-06] MEDS: MIDODRINE HCL 5 MG TABLET (PROAMATINE) PO SCH ×2 (08:20→21:41)
[2018-04-06] MEDS: POTASSIUM CHLORIDE 10 MEQ TAB.PRT.SR PO SCH (08:20)
--- NOTE | 2018-04-06 08:30 | NUR ---
ROUNDS: Performed 08:00 assessment, see flow sheet, patient is alert but non verbal and not able to make his needs known. Trach is intact with T-Collar in place, O2 SATS >90. RT upper arm PICC line, clean, dry and intact, flushed well, patent, with IV pump running. GTube in intact, patent, with feeding pump running. Bed locked in lowest position, seizure precautions in place. Will continue to monitor.
[2018-04-06] MEDS: BALSAM PERU/CASTOR OIL 60 GM OINT...G. TP SCH (08:41)
[2018-04-06] MEDS: ENOXAPARIN SODIUM 40 MG/0.4 ML SYRINGE SUBCUT SCH (08:41)
[2018-04-06] MEDS: PRAMIPEXOLE DI-HCL 1 MG TABLET PO SCH ×2 (08:42→21:40)
--- NOTE | 2018-04-06 12:00 | NUR ---
Pt. asleep in bed. Oral care performed. Pt. tolerated well.
--- NOTE | 2018-04-06 14:00 | NUR ---
Wound care performed, CHG bath given, linens changed, pt. repositioned. Pt. tolerated well.
--- NOTE | 2018-04-06 16:17 | NUR ---
DCP. PATIENT ACCEPTED AT SUBACUTE UNIT [facility] RM 222 VIA [facility] [phone]. WILL CONTINUE TO FF . SHILA FAITH RN/ CM T [phone]
[2018-04-06] MEDS: VANCOMYCIN HCL 1,000 MG in NS 250 ML IV SCH (18:04)
[2018-04-06] MEDS: MONTELUKAST 10 MG TABLET PO SCH (18:04)
--- NOTE | 2018-04-06 19:15 | NUR ---
Endorsement/Closing Note Endorsed bedside report to Jean-Pierre hunt RN using SBAR approach for continuation of care.
--- NOTE | 2018-04-06 20:00 | NUR ---
LETHARGIC. AROUSABLE. RESPONSIVE TO TACTILE STIMULI. CONTRACTED. ON O2 AT 28% FIO2 VIA T-COLLAR. ORAL CARE GIVEN. SUCTIONED TRACHE WITH MOD AMOUNT OF THICK WHITE MUCUS OBTAINED. GT FEEDING WITH PIVOT 1.5 INFUSING AT 45CC/HR. RESIDUAL CHECK 0. MACKAY CATH PATENT DRAINING CLEAR ESTHER URINE TO GRAVITY. CARMELA PICC LINE DRSG D/I. SR W/ DEPRESSED ST SEGMENT, OCC PACED BEATS. CONTACT ISOLATION OBSERVED.
--- NOTE | 2018-04-06 22:00 | NUR ---
HS CARE. TURNED. OPENS EYES SPONTANEOUSLY.
[2018-04-07] VITALS (13 sets, daily range): BP systolic 86–106
--- NOTE | 2018-04-07 | NUR ---
DOZES ON AND OFF. GT FLUSHED WITH 250CC H2O.
--- NOTE | 2018-04-07 02:00 | NUR ---
SLEPT INTERMITTENTLY. TURNED.
--- NOTE | 2018-04-07 04:00 | NUR ---
SUCTIONED TRACHEALLY WITH COPIOUS AMOUNTS OF PINK TINGED WHITE MUCUS OBTAINED. AM CARE. TURNED. ORAL CARE GIVEN.
[2018-04-07] MEDS: PANTOPRAZOLE SODIUM 40 MG TAB PO SCH (06:34)
[2018-04-07] MEDS: LEVOTHYROXINE SODIUM 0.1 MG TABLET PO SCH (06:35)
[2018-04-07] MEDS ORDERED: LEVOTHYROXINE SODIUM 0.1 MG TABLET ONE (06:46)
--- NOTE | 2018-04-07 08:00 | NUR ---
RN OPENING NOTE REPORT RECEIVED FROM ROLL FORMING MACHINE SET UP OPERATOR. PATIENT IS RESTING ON BED, OPEN EYE. NON VERBAL. PATIENT FLACC SCALE SHOWS THE PATIENT IN NO PAIN, PATIENT HAS A LOT OF SECRETION FROM THE TRACH TUBE, ENDOTRACHEAL SUCTION WAS DONE, THICK WHILE SPUTUM CAME OUT. O2 SAT BERTHA FROM 95% TO 100% AFTER THE SUCTION. BREATH SOUNDS IS NOW BETTER, STILL DIMINISHED ON THE LUNG BASES. PATIENT WAS ASSESSED , VITAL SIGNS ARE STABLE.G TUBE FEEDING WITH ZERO RESIDUAL , BED AT LOW POSITION AND CALL LIGHT WITHIN REACH, WILL CONTINUE FREQUENT ROUNDS ON THE PATIENT AND WATCH FOR HIS BREATHING WELL THE FEEDING.WILL CONTINUE TO MONITOR.
[2018-04-07] MEDS: ENOXAPARIN SODIUM 40 MG/0.4 ML SYRINGE SUBCUT SCH (08:56)
[2018-04-07] MEDS: LACOSAMIDE 100 MG TABLET PO SCH ×2 (08:58→21:28)
[2018-04-07] MEDS: ASCORBIC ACID 500 MG TABLET PO SCH ×2 (08:58→21:29)
[2018-04-07] MEDS: PRAMIPEXOLE DI-HCL 1 MG TABLET PO SCH ×2 (08:58→21:27)
[2018-04-07] MEDS: DOCUSATE SODIUM 100 MG CAPSULE PO SCH ×2 (08:58→21:29)
[2018-04-07] MEDS: TOPIRAMATE 100 MG TABLET(Topamax) PO SCH ×2 (08:58→21:29)
[2018-04-07] MEDS: POTASSIUM CHLORIDE 10 MEQ TAB.PRT.SR PO SCH (08:58)
[2018-04-07] MEDS: MIDODRINE HCL 5 MG TABLET (PROAMATINE) PO SCH ×2 (08:59→21:28)
[2018-04-07] MEDS: CALCIUM CARBONATE/VITAMIN D3 1 TAB TABLET PO SCH ×2 (08:59→21:28)
[2018-04-07] MEDS: 0.45% NACL 1,000 ML IV SCH (09:00)
[2018-04-07] MEDS: BALSAM PERU/CASTOR OIL 60 GM OINT...G. TP SCH (09:00)
--- NOTE | 2018-04-07 10:10 | NUR ---
RECOIL SPRING WINDER NOTE PATIENT WAS TRANSFERED TO [facility] RM 120 A, A REPORT WAS GIVEN TO GENEVIEVE /LOGAN AND HEREBY I SIGN OFF PATIENT'S CARE.
--- NOTE | 2018-04-07 10:11 | NUR ---
RECEIVED PT FROM ICU Patient transferred to Telemetry via hospital bed. Patient is on a MEJIA, seizure precautions in place. Patient is resting in bed, nonverbal. No s/s of distress, SOB or pain. Trach portex #8 intact, attached to O2 @2lpm. Burnett catheter patent, intact, draining clear yellow urine to gravity. Bed in lowest position, call light within reach. Contact precautions in place. Will cont. to monitor.
--- NOTE | 2018-04-07 11:25 | NUR ---
RT NOTES Tracheal sxn done for small thick yellow secretions. T.T remains secure/patent. HHN tx not indicated at this time. no SOB noted.
--- NOTE | 2018-04-07 14:26 | NUR ---
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 She stated that she would like for RD to re-evaluate pt and recommend a generic formula that pt may start on during hospital stay, that pt can also use at the subacute level. RD attempted to call Dr. Gonzalez's office this morning at 1100 -- was put on hold for 15 minutes -- and was unable to speak w/ physician. Electroneurodiagnostic Technologist stated she would have Dr. Gonzalez return my call later when he is less busy. RD provided call back number. RD notified the rifle case repairer [facility], as well as informed pt's new primary RN on telemetry unit. Pt was recently transferred out of ICU to telemetry unit. Per EMR, TF Intakes: 540 ml 04/07/18. Residuals: 0 ml 04/07/18. Abd is soft and non-distended w/ active bowel sounds. Last BM x1 04/06/18. I/O: 340/200 (+140 ml) per 12 hours. Pt has been tolerating TF well. adequate and appropriate. Current Diet Order/Nutrition Support Pivot 1.5 at 45 ml/hr, Free Water Flush: 250 ml Q6h via GT x5 days Patient/Significant Other Unable To Verbalize Education Provided Not Indicated Pertinent Medications k-dur, synthroid, colace, os-jeanine, VIT C, protonix, vancomycin/NaCl IV, MOM Pertinent Labs No new labs 04/04/18: BG 123 H, CRE 0.52 L, ALB 1.9 L, RBC 3.25 L, H/H 9.4 L/29.4 L Height (Feet) 6 feet Height (Inches) 0.00 inches Weight (Pounds) 130 pounds (03/19/18) -- BEDSCALE WT: 138 lb (04/01/18); 143.4 lb (04/04/18); 139.6 lb (04/07/18) Weight (Calculated Kilograms) 58.001997 kilograms Patient Weight 58.967 kg Body Mass Index 17.63 kg/m2 %IBW 73 Beauty/Adjusted Body Weight IBW: 178 lb, 81 kg Weight Status Underweight Gastrointestinal Symptoms None Difficulty With: Chewing Swallowing Food Allergies unable to verify Usual Diet At Home Pureed honey thick liquids per EMR Skin Integrity Comment: Damon scale: 13; Per Classified Advertising Manager note (03/31/18): 1. Sacral-Coccygeal area: Stage IV pressure ulcer, present on admission. 2. Sacral-Coccygeal area, right lateral aspect: Multiple areas of non-intact skin, present on admission. 3. Sacral-Coccygeal area, left lateral aspect: Multiple areas of non-intact skin, present on admission. 4. Left Achilles area: Area of purple discoloration, present on admission. Bilateral ankle and L periorbital w/ non-pitting edema Current % PO N/A on EN support Estimated Energy Expenditure (kcals/day) 9208-2169 kcal/day (30-35 kcal/kg CBW for wt gain promotion, wound healing) Estimated Protein Required (g/day) 97-122 gm/day (1.2-1.5 gm/kg IBW for wt gain, wounds) Estimated Fluid Required (l/day) 1.8 L/day (30 ml/kg CBW for geriatric maintenance) Problem/Etiology/Signs/Symptoms Chewing/swallowing difficulty related to cognitive limitations as evidenced by lethargy and inability to take PO diet at lunch. *ongoing Expected Outcomes/Goals - Monitor tolerance to EN support and intake w/ goal of pt meeting at least 75% of estimated nutritional needs, labs trending WNL, normal GI function, and skin integrity/wt maintenance Dietitian Recommendations * Recommend Jevity 1.2 at 65 ml/hr, Free Water Flush: 150 ml Q6h via GT Provides: 1872 kcal/day, 87 gm protein/day, and 1859 ml free water/day Meets: 106% of lower end of estimated caloric needs and 90% of lower end of estimated protein needs Follow Up High Risk: F/U in 2-3 days
--- NOTE | 2018-04-07 14:30 | NUR ---
WOUND CARE Wound care done. Wound cleansed with NS, pat dry, venelex applied to wound bed, x1 large tenderwet applied, moisture barrier cream applied to periwound, covered with foam dressing. Wound is red/pink/yellow, macerated periwound, moderate yellow/brown drainage, no odor. Tolerated procedure well.
--- NOTE | 2018-04-07 14:33 | NUR ---
DCP. SPOKE WITH DR WRIGHT DURING ROUNDS TODAY. PLAN TO DC TO SUBACUTE UNIT TOMORROW . SUBACUTE UNIT RM 222 AT [facility] T [phone] . [facility] [phone] COATER ASSOCIATE AT 2 PM.. SHILA FAITH RN/CM T [phone]
--- NOTE | 2018-04-07 14:42 | NUR ---
GRAY. SPOKE WITH REGIONAL CONSERVATOR, Gaby [phone] . Provided the address and tel no of [facility]. dilma meng rn/cm
--- NOTE | 2018-04-07 15:15 | NUR ---
RT NOTES Tracheal sxn done for moderate amount of thick pale yellow/white secretions w/c the patient tolerated well. Sterile trach care done w/c the patient tolerated as well. Trach tube remains secured (sutured, RN aware)/patent.
--- NOTE | 2018-04-07 16:30 | NUR ---
JUSTIN HAWLEY Attempted to call Dr. Gonzalez to f/u with RD recommended diet order: Jevity 1.2 @65ml/hr with Free Water flush 150ml Q6H via GT. Awaiting call back.
[2018-04-07] MEDS: MONTELUKAST 10 MG TABLET PO SCH (17:08)
[2018-04-07] MEDS: VANCOMYCIN HCL 1,000 MG in NS 250 ML IV SCH (17:08)
--- NOTE | 2018-04-07 18:44 | NUR ---
CLOSING NOTES Patient laying in bed resting. No s/s of distress or SOB. All needs met throughout shift. Safety, seizure and contact precautions maintained. Trach attached and intact, patient saturating at 100% on O2 2lpm. PICC line patent, intact, dressing is dry. Gtube patent, intact, feeding running well. Bed in lowest position, call light within reach. Will endorse to oncoming RN.
--- NOTE | 2018-04-07 19:47 | NUR ---
OPENING NOTES Pt and endorsement received from day shift nurse. Pt is resting in bed with both eyes closed. With visible chest rise and fall with unlabored breathing noted. Pt on IVF of 0.45NS at 40ml/hr and infusing well on CARMELA PICC line. Pt on tube feeding with Pivot 1.5 at 45ml/hr. Pt on bernard catheter with yellow urine noted in the bag. No signs of acute distress or SOB noted. Call light with pt, bed alarm on and at lowest level. Will continue to monitor.
--- NOTE | 2018-04-07 21:30 | NUR ---
MED PASS Assessed for bowel sounds and is active on four quadrants upon auscultation. No residual upon aspiration. All G-Tube meds given and pt tolerated well. Aspiration precautions maintained with head elevated at 40 degrees. No signs of acute distress or SOB noted. Reconnected tube feeding and is infusing well. Safety precautions in place and call light with pt. Will continue to monitor.
--- NOTE | 2018-04-08 01:02 | NUR ---
RESTING Pt is resting in bed with both eyes closed. With visible chest rise and fall with unlabored breathing noted. No signs of acute distress or SOB noted. Safety, seizure and aspiration precautions in place and call light with pt. Will continue to monitor.
[2018-04-08 01:23] VITALS: BP_SYST 95
--- NOTE | 2018-04-08 03:15 | NUR ---
RESTING Pt is resting in bed with both eyes closed. With visible chest rise and fall with unlabored breathing noted. No signs of acute distress or SOB noted. IVF and tube feeding are infusing well. Safety precautions in place and call light with pt. Will continue to monitor.
--- NOTE | 2018-04-08 03:50 | NUR ---
ASSISTED RT ERINN IN SUCTIONING Assisted RT Erinn in suctioning pt and pt tolerated well. Maintained head elevated at 40 degrees. Safety, aspiration and seizure precautions in place. Call light with pt. Will continue to monitor.
--- NOTE | 2018-04-08 05:15 | NUR ---
WOUND CARE Wound care done on sacral area. Cleansed with normal saline, pat dried with sterile gauze, applied venelex cream and applied two 1.6 tenderwet. Applied barrier cream on surrounding of periwound then covered of sacral foam dressing. Pt tolerated well. No signs of acute distress or SOB noted. Safety, aspiration and seizure precautions maintained while doing the procedure. Will continue to monitor.
[2018-04-08] MEDS: LEVOTHYROXINE SODIUM 0.1 MG TABLET PO SCH (06:26)
[2018-04-08] MEDS: PANTOPRAZOLE SODIUM 40 MG TAB PO SCH (06:26)
--- NOTE | 2018-04-08 06:46 | NUR ---
CLOSING NOTES Pt is resting in bed with both eyes closed. With visible chest rise and fall with unlabored breathing noted. No signs of acute distress noted. IVF and tube feeding are infusing well. Suctioning done as needed. Maintained O2 at 2L/min. Kept bernard bag hanged below bladder level. All needs attended throughout the shift. Safety, aspiration and seizure precautions in place and call light with pt. Will endorse to day shift nurse.
[2018-04-08 06:51] LABS: CALCIUM 8.8 mg/dL (8.4-11.0); CREATININE 0.52 mg/dL (0.55-1.30)
[2018-04-08 08:00] VITALS: BP_SYST 100
--- NOTE | 2018-04-08 08:00 | NUR ---
Note Pt resting in bed with T-Bar trach. CARMELA PICC intact and patent infusing IVF's well. Burnett catheter intact and draining well. No SOB/resp distress or pain/discomfort noted at this time. Gt feedings infusing well at this time. Pt maintained with contact isolation at this time. Tele unit attached and intact at this time. Pt next to nurses' station for close observation. Call light within reach.
[2018-04-08] MEDS: CALCIUM CARBONATE/VITAMIN D3 1 TAB TABLET PO SCH (08:50)
[2018-04-08] MEDS: DOCUSATE SODIUM 100 MG CAPSULE PO SCH (08:50)
[2018-04-08] MEDS: LACOSAMIDE 100 MG TABLET PO SCH (08:50)
[2018-04-08] MEDS: MIDODRINE HCL 5 MG TABLET (PROAMATINE) PO SCH (08:50)
[2018-04-08] MEDS: TOPIRAMATE 100 MG TABLET(Topamax) PO SCH (08:50)
[2018-04-08] MEDS: BALSAM PERU/CASTOR OIL 60 GM OINT...G. TP SCH (08:51)
[2018-04-08] MEDS: ASCORBIC ACID 500 MG TABLET PO SCH (08:51)
[2018-04-08] MEDS: POTASSIUM CHLORIDE 10 MEQ TAB.PRT.SR PO SCH (08:51)
[2018-04-08] MEDS: ENOXAPARIN SODIUM 40 MG/0.4 ML SYRINGE SUBCUT SCH (08:52)
[2018-04-08] MEDS: PRAMIPEXOLE DI-HCL 1 MG TABLET PO SCH (08:53)
[2018-04-08] MEDS: 0.45% NACL 1,000 ML IV SCH (09:45)
--- NOTE | 2018-04-08 09:45 | NUR ---
PAGED PAGED BETHANY PRETTY AT [phone] SPOKE WITH PINKY.
--- NOTE | 2018-04-08 10:00 | NUR ---
Note Pt was okayed for discharge today to [facility] by Dr Shah. Dr Gonzalez already did rounds and discharge orders given. Pt receiving breathing treatments as scheduled and PRN all shift. Call light within reach. No needs noted.
--- NOTE | 2018-04-08 10:54 | NUR ---
MD ANDERSON CALLED [facility] AT SPOKE WITH NATALIE GONZALEZ SUPERVISOR LEAD BURNING.
--- NOTE | 2018-04-08 10:55 | NUR ---
WOUND RE-EVALUATION: Late note for 1054 secondary to patient care. Patient received in a [place] Bed with an IsoFlex BENTLEY mattress with low air-loss therapy, awake, non-verbal, non-responsive to verbal commands. Patient is unable to turn in bed independently. Damon Score is a 12. Intrinsic factors that delay wound healing: Encephalopathy, hypoalbuminemia. Extrinsic factors that delay wound healing: Immobility. Bilateral lower extremities have hemosiderin staining. Wound Assessment: 1. Sacral-Coccygeal area: Stage IV pressure ulcer, present on admission. Wound bed has 75% yellow slough, 15% black slough, 10% red tissue. No odor, no drainage. Periwound has dark discolored tissue on bilateral and inferior aspects of wound. Right upper sacral area has scar tissue, on admission. Wound measures 5.0 cm x 7.0 cm x 1.5 cm. 2. Sacral-Coccygeal area, right lateral aspect: Multiple areas of non-intact skin, present on admission. Appears to have merged with wound 1 (total wound area is smaller than individual areas combined). 3. Sacral-Coccygeal area, left lateral aspect: Multiple areas of non-intact skin, present on admission. Appears to have merged with wound 1 (total wound area is smaller than individual areas combined). Recommend continue: Cleanse wound with normal saline. Place moisture barrier cream onto nathaly-wound. Apply Venelex ointment onto wound bed. Place one 2.2 inch TenderWet dressing into wound cavity. Cover with Sacral foam dressing. Perform wound care daily, and as needed for dressing soiling or dislodgement. 4. Left Achilles area: Area of purple discoloration, present on admission. Appears to have resolved. Recommend: No dressing needed. Do not allow involved area to come in contact with pillow, bed, or other areas. Also recommend continue: Reposition patient [id number] only every 2 hours with pillow support, and off-load pressure areas with pillows for pressure re-distribution. Offload, elevate and float bilateral heels with one pillow lengthwise (Do not allow Left Achilles area to come in contact with pillow, bed, or other areas). Perform skin care and monitor skin integrity Q shift. Use moisture barrier cream on buttocks and other moisture susceptible areas QID and as needed for soiling. Maintain patient on a low air-loss mattress.
--- NOTE | 2018-04-08 11:00 | NUR ---
Note Spoke to Siomara Ashley CM from HCP. Arrangements were made yesterday by Siomara for [facility] Rm [facility]. Siomara spoke to Dr Gonzalez, who stated to keep CARMELA PICC intact for continuation of IVPB antibiotics for a few more days and Burnett catheter intact - as pt has stage 3-4 decub on coccyx.
[2018-04-08 11:24] VITALS: BP_SYST 102
--- NOTE | 2018-04-08 12:00 | NUR ---
Note Pt's tele unit was dc'd and returned to wildlife biology technician. Pt's IVF's were saline locked and 2 lumens of PICC were flushed with 10cc of NS and capped. GT feedings were clamped and water flush given at this time. Burnett catheter emptied and kept intact. Pt's wound on sacral area were cleaned, photographed and dressed at this time as well. Photograph was taken and waiting for Dr Gonzalez to sign it. Discharge packet made ready. Call light within reach.
[2018-04-08 13:12] VITALS: BP_SYST 99
--- NOTE | 2018-04-08 14:00 | NUR ---
Note Pt was dressed in orange gown and sheet. Pt had no belongings at bedside at this time. Report was given to Demi FORD at [facility] at 1305. Pt was suctioned by resp therapist. Pt's discharge packet ready. Call light within reach.
--- NOTE | 2018-04-08 14:20 | NUR ---
Note Pt off the floor via [facility]. Discharge packet was given to EMT to give to [facility] staff for continuation of care. Pt stable with T-Bar trach. No SOB/resp distress or pain/discomfort noted at this time. Addendum: 04/08/18 at 1452 by Airam Dias RN Pt was maintained with safety precautions all shift. Pt was checked on q1' and PRN for needs and care all shift.
== END 2018-04-08 14:20 | DRG 4 ==
LOC: SED 14:50 → STU 17:21 → SIC 03-19 02:42 → STU 03-20 16:20 → SIC 03-22 04:05 → STU 04-07 10:00
PROVIDERS: ADMIT Internal Medicine; ATTEND Internal Medicine
PROC: 5A09357 Assistance with Respiratory Ventilation, Less than 24 Consecutive Hours, Continuous Positive Airway Pressure (ICD-10-PCS; 2018-03-19)
PROC: 5A1955Z Respiratory Ventilation, Greater than 96 Consecutive Hours (ICD-10-PCS; principal; 2018-03-22)
PROC: 02HV33Z Insertion of Infusion Device into Superior Vena Cava, Percutaneous Approach (ICD-10-PCS; 2018-03-22)
PROC: B548ZZA Ultrasonography of Superior Vena Cava, Guidance (ICD-10-PCS; 2018-03-22)
PROC: 0B110F4 Bypass Trachea to Cutaneous with Tracheostomy Device, Open Approach (ICD-10-PCS; 2018-04-01)
PROC: 0DH63UZ Insertion of Feeding Device into Stomach, Percutaneous Approach (ICD-10-PCS; 2018-04-01)
PROC: 0BP1XDZ Removal of Intraluminal Device from Trachea, External Approach (ICD-10-PCS; 2018-04-01)
PROC: 5A09357 Assistance with Respiratory Ventilation, Less than 24 Consecutive Hours, Continuous Positive Airway Pressure (ICD-10-PCS; 2018-04-02)
DX: T83.518A Infection and inflammatory reaction due to other urinary catheter, initial encounter (principal); J96.21 Acute and chronic respiratory failure with hypoxia; J69.0 Pneumonitis due to inhalation of food and vomit; A41.9 Sepsis, unspecified organism; R65.21 Severe sepsis with septic shock; I46.9 Cardiac arrest, cause unspecified; I49.01 Ventricular fibrillation; K56.7 Ileus, unspecified; N12 Tubulo-interstitial nephritis, not specified as acute or chronic; E87.0 Hyperosmolality and hypernatremia; E46 Unspecified protein-calorie malnutrition; I47.2 Ventricular tachycardia; J98.11 Atelectasis; G93.1 Anoxic brain damage, not elsewhere classified; G93.40 Encephalopathy, unspecified; Z99.11 Dependence on respirator [ventilator] status; Z68.1 Body mass index [BMI] 19.9 or less, adult; E86.0 Dehydration; D64.9 Anemia, unspecified; E03.9 Hypothyroidism, unspecified; E87.6 Hypokalemia; F32.9 Major depressive disorder, single episode, unspecified; G20 Parkinson's disease; G40.909 Epilepsy, unspecified, not intractable, without status epilepticus; I10 Essential (primary) hypertension; I48.0 Paroxysmal atrial fibrillation; I48.2 Chronic atrial fibrillation; M40.209 Unspecified kyphosis, site unspecified; K59.00 Constipation, unspecified; I25.10 Atherosclerotic heart disease of native coronary artery without angina pectoris; B96.20 Unspecified Escherichia coli [E. coli] as the cause of diseases classified elsewhere; B96.4 Proteus (mirabilis) (morganii) as the cause of diseases classified elsewhere; B95.62 Methicillin resistant Staphylococcus aureus infection as the cause of diseases classified elsewhere; Y83.8 Other surgical procedures as the cause of abnormal reaction of the patient, or of later complication, without mention of misadventure at the time of the procedure; R13.10 Dysphagia, unspecified; Z74.01 Bed confinement status; Z79.01 Long term (current) use of anticoagulants; Z86.718 Personal history of other venous thrombosis and embolism; Z87.01 Personal history of pneumonia (recurrent); Z87.440 Personal history of urinary (tract) infections; Z88.0 Allergy status to penicillin; Z95.0 Presence of cardiac pacemaker; Z88.8 Allergy status to other drugs, medicaments and biological substances; Y92.89 Other specified places as the place of occurrence of the external cause
CPT/HCPCS: 36415; 36600; 70450-TC; 71045; 80048; 80053; 80069; 80202-TC; 81000-TC; 82533; 82803-TC; 82962; 83605; 83735-TC; 84443-TC; 84484; 85025; 85610-TC; 85730-TC; 86710; 87040-TC; 87070-TC; 87081; 87086; 87186-TC; 87205-TC; 92610-GN; 93005; 93306; 94002; 94003; 94640; 94660; 94760; 96361; 96365; 96375; 99285; C1751; G0378; J0692; J1030; J1335; J1650; J1940; J1956; J2060; J2250; J2270; J3370; J3480; J3490; J7030; J7050; J7060; J7613; J7620; P9041